=== PATIENT | male | born 1960 | race Caucasian/White ===

== ENCOUNTER 2019-07-23 18:27 | Inpatient (IN) ==
[2019-07-23] MEDS ORDERED: ACETAMINOPHEN 325 MG TAB PO PRN (23:47)
[2019-07-23] MEDS ORDERED: ONDANSETRON INJ 2 MG/ML 2 ML VIAL IV PRN (23:47)
[2019-07-24] MEDS: D5W AND NSS 1,000 ML IV SCH ×3 (00:14→16:01)
[2019-07-24] MEDS: HYDROmorphone INJ 0.5 MG/0.5 ML SYR IV PRN ×3 (00:14→13:36)
[2019-07-24] MEDS: CHLORASEPTIC 1.4% SOLN 180 ML BTL MT PRN ×3 (04:56→12:36)
[2019-07-24 05:35] LABS: Basophils # (auto) 0.01 K/uL (0-0.2); Basophils % (auto) 0.2 %; Eosinophils # (auto) 0.05 K/uL (0-0.5); Eosinophils % (auto) 0.8 %; Hematocrit (blood only) 44.7 % (42-52); Hemoglobin 15.4 g/dL (14.0-18.0); Immature Granulocytes # (auto) 0.01 K/uL (0.00-0.02); Immature Granulocytes % (auto) 0.2 %; Lymphocytes # (auto) 0.92 K/uL (1.2-3.4); Lymphocytes % (auto) 14.9 %; Mean Corpuscular Hgb Conc 34.5 g/dL (32-36); Mean Corpuscular Volume 92.9 fL (80-100); Mean Platelet Volume 10.8 fL (7.4-10.4); Monocytes % (auto) 12.9 %; Neutrophils # (auto) 4.39 K/uL (1.4-6.5); Platelet Count 172 K/uL (130-400); RDW Coefficient of Variation 13.3 % (11.5-14.5); RDW Standard Deviation 45.7 fL (36.4-46.3); Red Blood Count 4.81 M/uL (4.7-6.1); White Blood Count 6.18 K/uL (4.8-10.8)
[2019-07-24 05:51] LABS: INR 1.1 (0.9-1.1); Partial Thromboplastin Ratio 0.9; Partial Thromboplastin Time 26.4 Seconds (21.0-31.0); Prothrombin Time 11.4 Seconds (9.0-12.0)
[2019-07-24 05:57] LABS: BUN Creatinine Ratio 20.8 (10-20); Calcium 8.9 mg/dl (8.5-10.1); Creatinine Clr Calc Pharmacy 75.7 ml/min; Est GFR (African American) 75.7; Est GFR (Non-African American) 65.3
--- NOTE | 2019-07-24 05:57 | History and Physical Report ---
DATE OF ADMISSION: 07/24/2019 CHIEF COMPLAINT: Abdominal pain, small-bowel obstruction. HISTORY OF PRESENT ILLNESS: This is a 59-year-old male with past medical history significant for hyperlipidemia, recurrent herpes simplex, not currently on medications, developed severe abdominal pain yesterday. No nausea or vomiting and he went to [facility] in [place], and CAT scan was done and found to have small-bowel obstruction, as they do not have surgical services currently, he was transferred here for further care. The patient has been placed NG tube prior to transfer. The pain is better controlled now. NG tube is draining greenish material. His last bowel movement was yesterday morning with a small bowel movement. Denies any blood in the stools or black stools. No hematuria, no burning micturition. No chest pain, no shortness of breath, no cough, no fever, no chills, no headache, no blurred vision, no dizziness, no earache, no runny nose, no sore throat, no dysphagia. He says he has an umbilical hernia repair and he did not had any other abdominal surgeries. Currently resting comfortably and hemodynamically stable. ALLERGIES: No known drug allergies. PAST MEDICAL HISTORY: As mentioned above. PAST SURGICAL HISTORY: Foot surgery, right knee arthroscopy, liver biopsy, umbilical hernia repair. MEDICATIONS: None. FAMILY HISTORY: Mother had lymphoma. SOCIAL HISTORY: No smoking. Alcohol, 6 beers a month. No drug use. REVIEW OF SYMPTOMS: As per HPI. Rest of review of symptoms negative. PHYSICAL EXAMINATION: GENERAL: The patient is moderate built, not in acute distress. VITAL SIGNS: Temperature 36.6, pulse 80, respiratory rate 18, blood pressure 168/99 and oxygen 98% on room air. HEENT: No pallor, no icterus. Pupils equal, round, reactive to light. NECK: No JVD, no neck masses, no carotid bruits. CARDIOVASCULAR: S1, S2 heard, regular rate and rhythm, no murmur, no gallop. RESPIRATORY SYSTEM: Normal AP diameter. No accessory muscle use. No wheezing. No crackles. ABDOMEN: Soft, somewhat distended. Absent bowel sounds. Nontender. No guarding. CENTRAL NERVOUS SYSTEM: Cranial nerves II-XII grossly intact. Nonfocal. EXTREMITIES: No edema, no erythema. LABORATORY DATA: Labs done at [facility] shows WBC 8.6, hemoglobin 17.2, hematocrit 49.7, platelets 188. Sodium 140, potassium 4.1, chloride 102, bicarbonate 22, BUN 22, creatinine 1.2, serum glucose 134, total bilirubin 0.8, AST 20, ALT 54, alkaline phosphatase 84. Troponin I less than 0.02. Magnesium 2, lipase 87. Lactic acid 1.1. Urinalysis unremarkable, negative. IMAGING: CT of abdomen and pelvis with contrast shows abnormal distention of the jejunum and proximal ileal bowel loops with decompression of the distal ileum and colon. No obstructing lesion is identified. This could represent small-bowel ileus or partial obstruction. There is no pneumatosis, perforation, fluid distended stomach with gastroesophageal reflux into the esophagus, small sliding hiatal hernia. ASSESSMENT AND PLAN: This is a 59-year-old male who was transferred from [facility] for small-bowel obstruction. 1. Small-bowel obstruction. The patient has only umbilical hernia repair surgery. No other abdominal surgeries. CAT scan shows no obstructing lesion, but shows distention of jejunal and proximal ileal bowel loops with decompression of the distal ileum and colon, partial small-bowel obstruction versus ileus. The patient is status post NG tube which we will continue for now, n.p.o., IV fluids, IV antiemetics, IV pain medicine p.r.n. Will follow KUB in a.m. and labs in a.m. Consult surgery for further recommendations. 2. Deep venous thrombosis prophylaxis, sequential compression devices. DISPOSITION: Close monitoring in the medical floor. Level 1 full code. MTDD
--- NOTE | 2019-07-24 08:31 | Surgery Consultation ---
Date of Consultation July 24, 2019 Assessment & Plan (1) Small bowel obstruction: This is a 59y M with a PSH of umbilical hernia repair who presented to [facility] yesterday with complaints of severe crampy abdominal pain. A CT a/p was obtained that revealed findings concerning for a small bowel ileus vs partial obstruction. Outside hospital CT scan has been uploaded in [place]. Patient sent to [facility] as there was no available surgeon on-call at OSH. He was transferred over with an NGT in place. Since arrival put out 350cc overnight. He had 3 loose bowel movements this AM. Patient believes his pain and abdominal bloat is improving, rating pain a 4/10 currently. His biggest complaint at this time is the NGT. A KUB was ordered this AM which shows persistent small bowel dilation, with concern for developing bowel wall edema. Currently patient's vital signs are stable. On examination patient has some abdominal discomfort to deep palpation and is distended. A lactate has been ordered to follow up upon. I will discuss case with Dr. Gaston. For now continue NPO with IVF and NGT management. We will continue to follow. as above. pt seen. feeling better. currently no abdominal pain. primary c/o is ngt. Lactic acid normal. abd: distended. +bs's. continue conservative management. IVF. keep NGT. recheck KUB tomorrow. only surgical hx is UH repair without mesh. will continue to follow along. History of Present Illness Attending Physician: Keiry Bailey, DO History of Present Illness This is a 59yM who presents to the [facility] on 07/24/19 as a transfer from [facility] with complaints of abdominal pain. Patient says his abdominal pain started yesterday. He initially thought it was a stomach bug, because his girlfriend just had it. His abdominal pain continued to worsen, describing it as crampy, and rating it a 9/10 prompting him to come to the ED. Workup at [facility] with a CT scan showed concern for possible small bowel ileus vs partial obstruction. WBC 8.6, lactate 1.1. He was transferred to [facility] as [facility] did not have a surgeon that was going to remain on-call. An NGT was placed prior to transfer. Patient denies any nausea/vomiting, chest pain, shortness of breath. Patient said his last BM prior to this AM was yesterday, and it was formed and small. He had abdominal bloat, which today he believes is improving. His past abdominal surgical history includes an open umbilical hernia repair, performed last year at [facility] in [place]. Allergies Allergy/AdvReac Type Severity Reaction Status Date / Time No Known Allergies Allergy Verified 06/26/02 17:59 Patient History Social History Preferred Language: Bangladeshi Communication Ability: Effective Lump Receiver Required: No Beliefs That Will Affect Care: None Current Living Situation: Alone Smoking Status: Never smoker Do You Dip or Chew Tobacco: No ; Hx Alcohol Use: No Hx Substance Use: No Review of Systems Constitutional: + chills and + sweats Respiratory: no shortness of breath Cardiovascular: no chest pain Gastrointestinal: + abdominal pain (generalized pain and cramping) and + bloating; no nausea and no vomiting + formed BM yesterday, + loose stoolx3 this AM Genitourinary: no problem reported (no urinary symptoms) Physical Exam Physical Exam: awake/alert Constitutional: well developed and well nourished; no acute distress Respiratory: normal respiratory effort Gastrointestinal (Abdomen): Inspection/Auscultation: + abdomen distended and + abdominal surgical scar (scar from prior open umbilical hernia) Percussion/Palpation: + abdomen tender (discomfort in abd to deep palpation) NGT green/brownish output, ~350cc Results & Data Vital Signs (Past 12 Hours) Vital Signs Temp Pulse Pulse Resp BP Pulse Ox 07/24/19 07:42 36.4 C L 94 H 18 148/96 H 94 07/24/19 04:38 81 153/96 H 07/23/19 23:40 36.6 C 80 18 168/99 H 95 [facility] CT a/p Impression Report: - Abnormal distention of jejunal and proximal ileal bowel loops with decompression of the distal ileum and colon. No obstruction lesion identified. Could represent small bowel ileus or partial obstruction. There is no pneumatosis or perforation. - Fluid distended stomach and gastroesophageal reflux into esophagus. And small hiatal hernia. XR KUB/Abdomen 1 view CLINICAL HISTORY: 59 years-old Male presenting with sbo. TECHNIQUE: Single supine view of the abdomen was obtained. COMPARISON: Outside CT of abdomen and pelvis from 07/23/2019. FINDINGS: Significantly distended small bowel with an apparent diameter of over 6 cm though this may be affected by magnification. Mild small bowel wall thickening may be present in the distended loops, which have a stacked configuration. Nasogastric tube terminates in the gastric fundus with sidehole also contained within the gastric lumen, new since CT. No gross pneumatosis or pneumoperitoneu m. Allowing for bowel gas and stool, no calcifications to suggest nephrolithiasis. Excreted contrast noted in the urinary bladder. Osseous structures normal. Lung bases clear. IMPRESSION: 1. Persistent small bowel obstruction with severely distended loops of small bowel. 2. Possible developing bowel wall edema could raise concern for ischemia. No pneumatosis. Close clinical follow-up recommended. The report will be called/faxed according to standard departmental protocol. ACT 112: Negative or not required by law. Electronically signed by: Adis Parisi M.D. 07/24/2019 8:32 AM PG Care Time/CCT Total # of Minutes Spent Total Time Spent with Patient: Total time spent is greater than 50% in coordination of care (as documented) at patient's floor/unit and/or counseling patient: Coding Level of Care Code 34566 Inpt Consult Level 4 Diagnoses Small bowel obstruction K56.609
--- NOTE | 2019-07-24 08:34 | XRay Report ---
XR KUB/Abdomen 1 view CLINICAL HISTORY: 59 years-old Male presenting with sbo. TECHNIQUE: Single supine view of the abdomen was obtained. COMPARISON: Outside CT of abdomen and pelvis from 07/23/2019. FINDINGS: Significantly distended small bowel with an apparent diameter of over 6 cm though this may be affecte d by magnification. Mild small bowel wall thickening may be present in the distended loops, which hav e a stacked configuration. Nasogastric tube terminates in the gastric fundus with sidehole also conta ined within the gastric lumen, new since CT. No gross pneumatosis or pneumoperitoneum. Allowing for bowel gas and stool, no calcifications to suggest nephrolithiasis. Excreted contrast not ed in the urinary bladder. Osseous structures normal. Lung bases clear. IMPRESSION: 1. Persistent small bowel obstruction with severely distended loops of small bowel. 2. Possible developing bowel wall edema could raise concern for ischemia. No pneumatosis. Close clin ical follow-up recommended. The report will be called/faxed according to standard departmental protocol. ACT 112: Negative or not required by law. Electronically signed by: Adis Parisi M.D. 07/24/2019 8:32 AM
[2019-07-24] MEDS ORDERED: CHLORASEPTIC 1.4% SOLN 180 ML BTL MT PRN (10:25)
[2019-07-24] MEDS ORDERED: LORazepam 0.5 MG/1 ML VIAL IV PRN (11:42)
[2019-07-24] MEDS ORDERED: LORazepam 0.5 MG/1 ML VIAL IV ONE (12:00)
--- NOTE | 2019-07-24 14:44 | Electrocardiogram Report ---
Test Reason : Blood Pressure : / mmHG Vent. Rate : 082 BPM Atrial Rate : 082 BPM P-R Int : 176 ms QRS Dur : 086 ms QT Int : 360 ms P-R-T Axes : 066 -16 042 degrees QTc Int : 420 ms Normal sinus rhythm Normal ECG No previous ECGs available Confirmed by Jovanny Dominguez ([id number]) on 07/24/2019 2:44:18 PM Referred By: Vahid Chiu Confirmed By:Jovanny Dominguez
[2019-07-24] MEDS ORDERED: KETOROLAC 30 MG/ML VIAL IV ONE (17:17)
[2019-07-24] MEDS ORDERED: LIDOCAINE HCL VISCOUS SOLN 2% 15 ML UDC MT PRN (17:17)
[2019-07-24] MEDS: ACETAMINOPHEN 1,000 MG/100 ML VIAL IV SCH (18:01)
--- NOTE | 2019-07-24 22:55 | Communication Note ---
Date of Service: July 24, 2019 I saw the patient this morning shortly after admission. He reported NG tube discomfort in the back of his throat not improved with phenol spray. Trial of Ativan was given to him to help with this which later the nurse explained made him goofy. Good venous was likely were the result of taking the IV Ativan with IV Dilaudid. Discontinue the Ativan and gave Tylenol and other pain medications. Physical exam revealed slightly distended abdomen in the upper portion which is also tender to palpation. No bowel sounds were appreciable by auscultation. NG tube in place and the patient is uncomfortable with this. Clear lungs auscultation. Normal cardiac exam. Continue plan for bowel rest and supportive care as needed. Awaiting surgical recommendations. DO Leo
[2019-07-25] MEDS: D5W AND NSS 1,000 ML IV SCH ×3 (00:04→16:35)
[2019-07-25] MEDS: KETOROLAC 30 MG/ML VIAL IV PRN ×2 (00:08→07:39)
[2019-07-25] MEDS: ACETAMINOPHEN 1,000 MG/100 ML VIAL IV SCH ×3 (02:35→18:29)
--- NOTE | 2019-07-25 07:09 | XRay Report ---
KUB HISTORY: Follow up study in a patient with small bowel obstruction eval SBO pattern COMPARISON: KUB 07/24/2019 FINDINGS: Persistent dilated loops of small bowel within the left central abdomen measure up to 4.8 c m, previously 6.4. Enteric tube is noted projecting over the upper abdomen which appears to have been slightly retracted in the interval with distal tip projected superiorly near the gastric fundus. No renal calculi. No ureteral calculi. No pneumoperitoneum or pneumatosis. No fracture. IMPRESSION: 1. Persistent small bowel dilation, mildly improved from comparison suggestive of ongoing small bowel obstruction. 2. The enteric tube has been partially retracted, distal tip projected superiorly within the expected location of the proximal gastric fundus. ACT 112: Negative or not required by law. The above report was generated using voice recognition software. It may contain grammatical, syntax o r spelling errors. Electronically signed by: Zane Childers M.D. 07/25/2019 7:08 AM
[2019-07-25] MEDS ORDERED: SODIUM CHLORIDE 0.9% 1000ML 1,000 ML IV ONE (11:20)
[2019-07-25] MEDS ORDERED: FAMOTIDINE 20 MG in SYRINGE 3 ML IV SCH (11:30)
--- NOTE | 2019-07-25 11:51 | Surgery Progress Note ---
Date of Service July 25, 2019 Assessment & Plan (1) Partial small bowel obstruction: clinically slowly improving KUB slightly improved NGT still with high outputs ( pt admittedly eating alot of ice) rec: keep ngt. repeat KUB tomorrow. IVF ( will give bolus now for high output) no indication for surgery yet will add protonix ( NGT output appears heme + ) [facility] covering for weekend. Subjective pt feeling ok. denies pain. no appetite. +several more loose BM's this am. Physical Exam Physical Exam: alert. nad. comfortable abd: soft. less distended than yesterday. mild diffuse ttp. no g/r/r Results & Data Vital Signs (Past 12 Hours) Vital Signs Temp Pulse Resp BP Pulse Ox 07/25/19 07:45 36.4 C L 76 14 153/88 H 93 PG Care Time/CCT Total # of Minutes Spent Total Time Spent with Patient: Total time spent is greater than 50% in coordination of care (as documented) at patient's floor/unit and/or counseling patient: Coding Level of Care Code 32815 Subseq Hosp Care Lvl 3 Diagnoses Partial small bowel obstruction K56.600
--- NOTE | 2019-07-25 14:59 | Hospitalist Progress Note ---
Date of Service July 25, 2019 Assessment & Plan (1) UGIB (upper gastrointestinal bleed): NEw coffee ground emesis on Day 2 of NGT. Toradol has been given for pain, last dose was 700am this morning. Pt denies pain. Protonix bolus and drip. Toradol discontinued. Consult GI. Likely OK to remove tube as patient having bowel movements, however, would like to coordinate that with Gen Surg and GI first. Strict NPO. CBC pending. (2) Small bowel obstruction: Persistent. NGT and bowel rest. Improved. Cont supportive care. (3) Headache: tylenol, massage/pressure to neck base recommended. (4) DVT prophylaxis: SCDs/ambulation-chemoprophy contraindicated in setting of bleed. Full Code Dispo-cont hospitalization DO [facility] Admission and Anticipated Discharge Date Admission Date: July 23, 2019 Subjective +headache +coffee grouond emesis starting 1000 this am last dose toradol 0700 +BM this afternoon denies abdominal pain no fevers/chills throat sore and irritated from tube. Review of Systems Review of Systems: All systems reviewed & are unremarkable except as noted in Subjective Physical Exam Physical Exam: CONSTITUTIONAL: WNWD, vitals as above, generally well- appearing EYES: normal conjunctivae, no scleral icterus ENT: external ear and nose normal, oropharynx clear, NGT in place, coffee ground substance in suction canister RESPIRATORY: clear to auscultation bilaterally, no crackles, rales or wheezes, normal respiratory effort CARDIOVASCULAR: regular rate and rhythm, S1 and 2 heard without murmurs, gallops or rubs, no JVD, no peripheral edema GASTROINTESTINAL: soft, nontender, slight protuberance but soft, no guarding. MUSCULOSKELETAL: strength 5/5 throughout, head is normocephalic and atraumatic SKIN: warm and dry NEUROLOGIC: CN 2-12 grossly intact, no sensory deficit, normal cognition, normal speech, no gross focal deficits. PSYCHIATRIC: alert cooperative and oriented to person, place and time. Results & Data ([facility]) Vital Signs (Past 12 Hours) Vital Signs Temp Pulse Resp BP Pulse Ox 07/25/19 13:05 79 160/91 H 07/25/19 11:53 36.7 C 72 14 163/83 H 95 07/25/19 07:45 36.4 C L 76 14 153/88 H 93 Laboratory Results pending Diagnostic Findings KUB HISTORY: Follow up study in a patient with small bowel obstruction eval SBO pattern COMPARISON: KUB 07/24/2019 FINDINGS: Persistent dilated loops of small bowel within the left central abdomen measure up to 4.8 cm, previously 6.4. Enteric tube is noted projecting over the upper abdomen which appears to have been slightly retracted in the interval with distal tip projected superiorly near the gastric fundus. No renal calculi. No ureteral calculi. No pneumoperitoneum or pneumatosis. No fracture. IMPRESSION: 1. Persistent small bowel dilation, mildly improved from comparison suggestive of ongoing small bowel obstruction. 2. The enteric tube has been partially retracted, distal tip projected superiorly within the expected location of the proximal gastric fundus. Medications Administered Current Inpatient Medications Hydromorphone HCl (Dilaudid) 0.5 mg IV Q3H PRN PRN Reason: Pain Stop: 08/06/19 23:46 Last Admin: 07/24/19 13:36 Dose: 0.5 mg Documented by: Dextrose/Sodium Chloride (D5w And Nss) 1,000 mls @ 125 mls/hr IV .Q8H SARAHI Stop: 08/22/19 23:46 Last Infusion: 07/25/19 13:10 Dose: 125 mls/hr Documented by: Acetaminophen (Ofirmev) 1,000 mg in 100 mls @ 400 mls/hr IV Q8H SARAHI Stop: 07/27/19 17:59 Last Infusion: 07/25/19 10:18 Dose: Infused Documented by: Famotidine 20 mg/ Syringe 5 mls @ 2.5 mls/min IV BID SARAHI Stop: 08/24/19 11:29 Last Admin: 07/25/19 11:57 Dose: 2.5 mls/min Documented by: Pantoprazole Sodium 80 mg/ (Dextrose) 120 mls @ 480 mls/hr IV TODAY@1515 SARAHI Stop: 07/25/19 15:29 Pantoprazole Sodium 40 mg/ (Dextrose) 100 mls @ 20 mls/hr IV Q5H SARAHI Stop: 08/24/19 15:29 Lidocaine HCl (Viscous Lidocaine 2%) 15 ml MT Q8H PRN PRN Reason: throat pain Stop: 08/23/19 17:16 Ondansetron HCl (Zofran) 4 mg IV Q6H PRN PRN Reason: Nausea Stop: 08/22/19 23:46 Last Admin: 07/24/19 00:21 Dose: 4 mg Documented by: Phenol (Chloraseptic 1.4% [place]) 2 sprays MT Q2H PRN PRN Reason: Sore Throat Stop: 08/23/19 04:27 Last Admin: 07/24/19 12:36 Dose: 2 sprays Documented by:
[2019-07-25] MEDS ORDERED: PANTOprazole 80 MG in DEXTROSE 5% 100 ML IV SCH (15:15)
--- NOTE | 2019-07-25 15:37 | Gastrointestinal Consultation ---
Date of Consultation July 25, 2019 Assessment & Plan (1) Partial small bowel obstruction: (2) Coffee ground emesis: Pt is a 59 y/o male w resolving partial SBO, noted to have coffee ground NGT output this AM. - Repeat CBC, BMP today - Keep NPO - Start PPI bolus and gtt; Pepcid IV DC'd - Monitor blood ct and if decreasing H/H will consider EGD eval over weekend - Hold NSAIDs Supervising Physician Co-Signing Physician Notes I performed a history and physical examination of the patient today, including specifically on physical exam - soft abdomen. I have discussed the patient's management with the advanced practitioner. Please refer to the nurse practitioner's note for the documented findings and plan of care. 59 yrs old male patient admitted with SBO, has NG placed for decompression, GI consulted for coffee ground material in the NG tube. He is passing flatus and has brown colored BM. KUB with dilated loops of small bowel. NG aspirate is now yellow bile colored with no blood or coffee ground material. Recommend: IV PPI BID Management of SBO per surgical team. If evidence of rebleeding or drop in H/H then please recall GI over the weekend for EGD, otherwise if remains stable then OP EGD. Recall GI if needed. History of Present Illness Reason for Consultation: Coffee ground NGT output Requesting Physician: Dr. Keiry Bailey Attending Physician: Dr. Sarai Meredith History of Present Illness Pt is a 59 y/o male who was transferred from [facility] for partial small bowel obstruction management. Partial SBO is resolving, pt passing flatus, BMs, and having less abd distension, less discomfort. Surgery following, continuing conservative management. Pt has NGT in placed, and had been NPO except ice chips. It's noted that his NGT is putting out coffee grounds 10AM this morning. No labs available today. Yesterday bloodwork showed no leukocytosis, normal H/H, BUN up 25. Pt reports stools were brown earlier today w/o tarry or black appearance or fermin rectal bleeding. He takes Advil 1 tab usually at nighttime. Denies high doses NSAIDs otherwise, tobacco or ETOH abuses. Denies hx of gastric ulcer. Abd surgery hx include umbilical hernia repair. He did receive Toradol while admitted Allergies Allergy/AdvReac Type Severity Reaction Status Date / Time No Known Allergies Allergy Verified 06/26/02 17:59 Patient History Social History Preferred Language: [place] Communication Ability: Effective Tailing Hand Required: No Beliefs That Will Affect Care: None marital status: Current Living Situation: Alone Smoking Status: Never smoker Do You Dip or Chew Tobacco: No ; Hx Alcohol Use: No Hx Substance Use: No Review of Systems Review of Systems: All systems reviewed & are unremarkable except as noted in HPI & below Physical Exam Constitutional: WD/WN, vitals as above well groomed, cooperative and comfortable Eyes: PERRL, conjunctivae normal, anicteric sclerae ENMT: external ear and nose normal, oropharynx normal NGT canister w coffee grounds about 300ml Respiratory: normal respiratory effort, lungs clear to auscultation Cardiovascular: RRR, no murmur, no edema Gastrointestinal (Abdomen): normal bowel sounds, soft, nontender, no hepatosplenomegaly Skin: no rashes, warm and dry no jaundice Psychiatric: A+Ox3, euthymic affect Lymphatic: no lymphedema Results & Data ([facility]) Vital Signs (Past 12 Hours) Vital Signs Temp Pulse Pulse Resp BP Pulse Ox 07/25/19 15:24 36.6 C 77 16 171/96 H 96 07/25/19 13:05 79 160/91 H 07/25/19 11:53 36.7 C 72 14 163/83 H 95 07/25/19 07:45 36.4 C L 76 14 153/88 H 93
[2019-07-25 15:44] LABS: Basophils # (auto) 0.02 K/uL (0-0.2); Basophils % (auto) 0.4 %; Eosinophils # (auto) 0.07 K/uL (0-0.5); Eosinophils % (auto) 1.4 %; Hemoglobin 13.7 g/dL (14.0-18.0); Immature Granulocytes # (auto) 0.01 K/uL (0.00-0.02); Immature Granulocytes % (auto) 0.2 %; Lymphocytes # (auto) 1.28 K/uL (1.2-3.4); Lymphocytes % (auto) 25.9 %; Mean Corpuscular Hemoglobin 31.9 pg (25-34); Mean Corpuscular Volume 93.2 fL (80-100); Mean Platelet Volume 10.6 fL (7.4-10.4); Monocytes # (auto) 0.51 K/uL (0.11-0.59); Monocytes % (auto) 10.3 %; Neutrophils # (auto) 3.06 K/uL (1.4-6.5); Neutrophils % (auto) 61.8 %; Platelet Count 168 K/uL (130-400); RDW Coefficient of Variation 13.1 % (11.5-14.5); RDW Standard Deviation 44.2 fL (36.4-46.3); Red Blood Count 4.29 M/uL (4.7-6.1); White Blood Count 4.95 K/uL (4.8-10.8)
[2019-07-25] MEDS: PANTOprazole 40 MG in DEXTROSE 5% 100 ML IV SCH ×2 (15:48→20:40)
[2019-07-25 15:57] LABS: Albumin Level 3.5 gm/dl (3.4-5.0); BUN Creatinine Ratio 12.8 (10-20); Bilirubin,Total 0.7 mg/dl (0.2-1); Calcium 8.1 mg/dl (8.5-10.1); Creatinine Clr Calc Pharmacy 102.1 ml/min; Est GFR (African American) 107.7; Est GFR (Non-African American) 92.9; Globulin 3.5 gm/dl (2.5-4.0); Potassium 3.5 mmol/L (3.5-5.1)
[2019-07-25 16:05] LABS: Mean Corpuscular Hgb Conc 34.3 g/dL (32-36)
[2019-07-25] MEDS ORDERED: HydrALAZINE HCL 20 MG/ML VIAL IV ONE (16:20)
[2019-07-25] MEDS: HYDROmorphone INJ 0.5 MG/0.5 ML SYR IV PRN ×2 (17:17→20:50)
[2019-07-25] MEDS: CHLORASEPTIC 1.4% SOLN 180 ML BTL MT PRN (20:40)
[2019-07-25 21:10] LABS: Hematocrit (blood only) 40.7 % (42-52)
[2019-07-26] MEDS: D5W AND NSS 1,000 ML IV SCH ×3 (01:14→16:16)
[2019-07-26] MEDS: ACETAMINOPHEN 1,000 MG/100 ML VIAL IV SCH ×3 (01:15→18:05)
[2019-07-26] MEDS: PANTOprazole 40 MG in DEXTROSE 5% 100 ML IV SCH ×5 (01:21→21:26)
[2019-07-26] MEDS: HYDROmorphone INJ 0.5 MG/0.5 ML SYR IV PRN ×4 (04:44→21:26)
[2019-07-26 05:48] LABS: Hematocrit (blood only) 38.6 % (42-52); Hemoglobin 13.4 g/dL (14.0-18.0); Mean Corpuscular Hemoglobin 31.5 pg (25-34); Mean Corpuscular Hgb Conc 34.7 g/dL (32-36); Mean Corpuscular Volume 90.6 fL (80-100); Mean Platelet Volume 10.4 fL (7.4-10.4); Platelet Count 167 K/uL (130-400); RDW Coefficient of Variation 12.9 % (11.5-14.5); RDW Standard Deviation 42.5 fL (36.4-46.3); Red Blood Count 4.26 M/uL (4.7-6.1); White Blood Count 4.64 K/uL (4.8-10.8)
[2019-07-26 06:26] LABS: BUN Creatinine Ratio 6.8 (10-20); Calcium 7.9 mg/dl (8.5-10.1); Creatinine Clr Calc Pharmacy 113.6 ml/min; Est GFR (African American) 112.5; Est GFR (Non-African American) 97.1; Magnesium 1.9 mg/dl (1.8-2.4); Potassium 3.2 mmol/L (3.5-5.1)
--- NOTE | 2019-07-26 09:23 | XRay Report ---
XR KUB/Abdomen 1 view CLINICAL HISTORY: eval bowel pattern COMPARISON STUDY: 07/25/2019 FINDINGS: Improved exam. Small bowel distention has improved. Maximum diameter has diminished to 4.2 cm from 4.8 cm. Nasogastric tube remains within the gastric fundus. No evidence for significant colonic distention. IMPRESSION: Mildly improved small bowel distention. Nasogastric tube remains within the gastric fund us. ACT 112: Negative or not required by law. The above report was generated using voice recognition software. It may contain grammatical, syntax or spelling errors. Electronically signed by: Hany Mccall M.D. 07/26/2019 9:21 AM
--- NOTE | 2019-07-26 12:34 | Hospitalist Progress Note ---
Date of Service July 26, 2019 Assessment & Plan (1) UGIB (upper gastrointestinal bleed): Coffee ground emesis started yesterday morning, now improved on PPI drip. No drop in H/H overnight and he remains hemodynamically stable. Will need to schedule an outpatient EGD with Braeden MOYA as outpatient upon discharge from the hospital. (2) Small bowel obstruction: Awaiting clearance from surgery to remove the tube. Some bowel sounds present/passing flatus/KUB this am still reports SB distension and abdomen is still distended. Will trial clamp the tube now until seen by surgery. (3) Headache: resolved. Tylenol PRN (4) DVT prophylaxis: SCDs/ambulation-chemoprophy contraindicated in setting of bleed. Full Code Dispo-cont hospitalization Keiry Bailey DO [facility] Hospitalist Admission and Anticipated Discharge Date Admission Date: July 23, 2019 Anticipated date of discharge: 07/28/19 Physical Exam Physical Exam: CONSTITUTIONAL: WNWD, vitals as above, generally well- appearing EYES: normal conjunctivae, no scleral icterus ENT: external ear and nose normal, oropharynx clear, NGT in place, substance in suction container more greenish appearance similar to bile. RESPIRATORY: clear to auscultation bilaterally, no crackles, rales or wheezes, normal respiratory effort CARDIOVASCULAR: regular rate and rhythm, S1 and 2 heard without murmurs, gallops or rubs, no JVD, no peripheral edema GASTROINTESTINAL: soft, nontender, slight protuberance but soft, no guarding. Hypoactive bowel sounds MUSCULOSKELETAL: strength 5/5 throughout, head is normocephalic and atraumatic SKIN: warm and dry NEUROLOGIC: CN 2-12 grossly intact, no sensory deficit, normal cognition, normal speech, no gross focal deficits. PSYCHIATRIC: alert cooperative and oriented to person, place and time. Results & Data ([facility]) Vital Signs (Past 12 Hours) Vital Signs Temp Pulse Resp BP Pulse Ox 07/26/19 07:25 36.8 C 67 16 135/74 95 Laboratory Results Short CBC 07/25/19 07/25/19 07/26/19 Range/Units 15:17 20:59 05:20 WBC 4.95 4.64 L (4.8-10.8) K/uL Hgb 13.7 L 14.0 13.4 L (14.0-18.0) g/dL Hct 40.0 L 40.7 L 38.6 L (42-52) % Plt Count 168 167 (130-400) K/uL BMP 07/25/19 07/26/19 15:17 05:20 Sodium 142 140 Potassium 3.5 3.2 L Chloride 112 H 109 H Carbon Dioxide 26 26 BUN 11 D 5 L D Creatinine 0.89 D 0.80 Glucose 95 108 H Calcium 8.1 L 7.9 L Liver Function 07/25/19 Range/Units 15:17 Total Bilirubin 0.7 (0.2-1) mg/dl AST 15 (15-37) U/L ALT 26 (12-78) U/L Alkaline Phosphatase 60 (45-117) U/L Albumin 3.5 (3.4-5.0) gm/dl Diagnostic Findings XR KUB/Abdomen 1 view CLINICAL HISTORY: eval bowel pattern COMPARISON STUDY: 07/25/2019 FINDINGS: Improved exam. Small bowel distention has improved. Maximum diameter has diminished to 4.2 cm from 4.8 cm. Nasogastric tube remains within the gastric fundus. No evidence for significant colonic distention. IMPRESSION: Mildly improved small bowel distention. Nasogastric tube remains within the gastric fundus. Medications Administered Current Inpatient Medications Hydromorphone HCl (Dilaudid) 0.5 mg IV Q3H PRN PRN Reason: Pain Stop: 08/06/19 23:46 Last Admin: 07/26/19 09:34 Dose: 0.5 mg Documented by: Dextrose/Sodium Chloride (D5w And Nss) 1,000 mls @ 125 mls/hr IV .Q8H SARAHI Stop: 08/22/19 23:46 Last Admin: 07/26/19 09:28 Dose: 125 mls/hr Documented by: Acetaminophen (Ofirmev) 1,000 mg in 100 mls @ 400 mls/hr IV Q8H SARAHI Stop: 07/27/19 17:59 Last Infusion: 07/26/19 09:45 Dose: Infused Documented by: Pantoprazole Sodium 40 mg/ (Dextrose) 100 mls @ 20 mls/hr IV Q5H SARAHI Stop: 08/24/19 15:29 Last Admin: 07/26/19 11:08 Dose: 8 mg/hr, 20 mls/hr Documented by: Lidocaine HCl (Viscous Lidocaine 2%) 15 ml MT Q8H PRN PRN Reason: throat pain Stop: 08/23/19 17:16 Last Admin: 07/25/19 17:19 Dose: 15 ml Documented by: Ondansetron HCl (Zofran) 4 mg IV Q6H PRN PRN Reason: Nausea Stop: 08/22/19 23:46 Last Admin: 07/24/19 00:21 Dose: 4 mg Documented by: Phenol (Chloraseptic 1.4% [place]) 2 sprays MT Q2H PRN PRN Reason: Sore Throat Stop: 08/23/19 04:27 Last Admin: 07/25/19 20:40 Dose: 2 sprays Documented by:
--- NOTE | 2019-07-26 14:18 | Gastroenterology Progress Note ---
Date of Service July 26, 2019 Assessment & Plan (1) Small bowel obstruction: (2) Coffee ground emesis: likely bilious Recs: 1.continue NPO 2. NG tube to intermittent suction 3. daily KUBs 4.serial abdominal exams Admission and Anticipated Discharge Date Admission Date: July 23, 2019 Anticipated date of discharge: 07/28/19 Subjective no events overnight, no further coffee ground emesis, hgb noted to be 13.4 today. afebrile. still with NG tube. Review of Systems Constitutional: no fever and no chills Respiratory: no cough, no dyspnea and no dyspnea on exertion Cardiovascular: no chest pain and no dyspnea Gastrointestinal: as per Subjective / HPI Psychiatric: no depression and no anxiety Physical Exam Constitutional: WD/WN, vitals as above Respiratory: normal respiratory effort, lungs clear to auscultation Cardiovascular: RRR, no murmur, no edema Gastrointestinal (Abdomen): normal bowel sounds, soft, nontender, no hepatosplenomegaly Musculoskeletal: no lower extremity edema Psychiatric: A+Ox3, euthymic affect Results & Data Results & Data ([facility]) Vital Signs (Past 12 Hours) Vital Signs Temp Pulse Resp BP Pulse Ox 07/26/19 07:25 36.8 C 67 16 135/74 95 PG Care Time/CCT Total # of Minutes Spent Total Time Spent with Patient: Total time spent is greater than 50% in coord ination of care (as documented) at patient's floor/unit and/or counseling patient: Coding Level of Care Code 13205 Subseq Hosp Care Lvl 3 Diagnoses Small bowel obstruction K56.609 Coffee ground emesis K92.0
--- NOTE | 2019-07-26 20:10 | Surgery Progress Note ---
Date of Service pt feels better, no abdominal pain, no nausea, no vomiting, still passed gas, no bm yet, NG-380ml July 26, 2019 Assessment & Plan (1) Partial small bowel obstruction: partial SBO, doing better, no abdominal pain, passed gas, continue treatment, no surgical indication now, will F/U Supervising Physician Co-Signing Physician Notes I performed a history and physical examination of the patient today, including specifically on physical exam - soft abdomen. I have discussed the patient's management with the advanced practitioner. Please refer to the nurse practitioner's note for the documented findings and plan of care. 59 yrs old male patient admitted with SBO, has NG placed for decompression, GI consulted for coffee ground material in the NG tube. He is passing flatus and has brown colored BM. KUB with dilated loops of small bowel. NG aspirate is now yellow bile colored with no blood or coffee ground material. Recommend: IV PPI BID Management of SBO per surgical team. If evidence of rebleeding or drop in H/H then please recall GI over the weekend for EGD, otherwise if remains stable then OP EGD. Recall GI if needed. Subjective +headache +coffee grouond emesis starting 1000 this am last dose toradol 0700 +BM this afternoon denies abdominal pain no fevers/chills throat sore and irritated from tube. Physical Exam Constitutional: WD/WN, vitals as above well developed and well nourished Eyes: PERRL, conjunctivae normal, anicteric sclerae ENMT: external ear and nose normal, oropharynx normal Neck: trachea midline, no thyromegaly Respiratory: normal respiratory effort, lungs clear to auscultation Cardiovascular: RRR, no murmur, no edema Rate/Rhythm: regular rate and regular rhythm Gastrointestinal (Abdomen): Percussion/Palpation: abdomen soft NT, ND umbilical incision scar, no redness, BS + Musculoskeletal: no cyanosis or clubbing, extremities motor strength 5/5 Skin: no rashes, warm and dry Neurologic: patellar DTR's 2+ bilat, sensation intact Psychiatric: A+Ox3, euthymic affect Orientation: alert and oriented x 3 Results & Data Vital Signs (Past 12 Hours) Vital Signs Temp Pulse Resp BP Pulse Ox 07/26/19 15:27 37.0 C 74 18 179/88 H 96 Laboratory Results Abnormal lab results 07/25/19 07/26/19 07/26/19 Range/Units 20:59 05:20 05:20 WBC 4.64 L (4.8-10.8) K/uL RBC 4.26 L (4.7-6.1) M/uL Hgb 13.4 L (14.0-18.0) g/dL Hct 40.7 L 38.6 L (42-52) % Potassium 3.2 L (3.5-5.1) mmol/L Chloride 109 H (98-107) mmol/L BUN 5 L D (7-18) mg/dl BUN/Creatinine Ratio 6.8 L (10-20) Glucose 108 H (70-99) mg/dl Calcium 7.9 L (8.5-10.1) mg/dl Diagnostic Findings XR KUB/Abdomen 1 view CLINICAL HISTORY: eval bowel pattern COMPARISON STUDY: 07/25/2019 FINDINGS: Improved exam. Small bowel distention has improved. Maximum diameter has diminished to 4.2 cm from 4.8 cm. Nasogastric tube remains within the gastric fundus. No evidence for significant colonic distention. IMPRESSION: Mildly improved small bowel distention. Nasogastric tube remains within the gastric fundus.
[2019-07-27] MEDS: HYDROmorphone INJ 0.5 MG/0.5 ML SYR IV PRN ×2 (00:43→09:34)
[2019-07-27] MEDS: D5W AND NSS 1,000 ML IV SCH ×2 (00:43→07:32)
[2019-07-27] MEDS: PANTOprazole 40 MG in DEXTROSE 5% 100 ML IV SCH ×5 (02:10→21:59)
[2019-07-27] MEDS: ACETAMINOPHEN 1,000 MG/100 ML VIAL IV SCH ×2 (02:10→09:34)
--- NOTE | 2019-07-27 10:54 | Surgery Progress Note ---
Date of Service passed gas and 4 time BM, no abdominal pain, NG- 350ml, July 27, 2019 Assessment & Plan (1) Partial small bowel obstruction: partial SBO, doing better, no abdominal pain, passed gas, continue treatment, no surgical indication now, will F/U 07/27/2019 10:55AM doing fine, D/C NG clera diet today, will F/U Supervising Physician Co-Signing Physician Notes I performed a history and physical examination of the patient today, including specifically on physical exam - soft abdomen. I have discussed the patient's management with the advanced practitioner. Please refer to the nurse practitioner's note for the documented findings and plan of care. 59 yrs old male patient admitted with SBO, has NG placed for decompression, GI consulted for coffee ground material in the NG tube. He is passing flatus and has brown colored BM. KUB with dilated loops of small bowel. NG aspirate is now yellow bile colored with no blood or coffee ground material. Recommend: IV PPI BID Management of SBO per surgical team. If evidence of rebleeding or drop in H/H then please recall GI over the weekend for EGD, otherwise if remains stable then OP EGD. Recall GI if needed. Subjective +headache +coffee grouond emesis starting 1000 this am last dose toradol 0700 +BM this afternoon denies abdominal pain no fevers/chills throat sore and irritated from tube. Physical Exam Constitutional: WD/WN, vitals as above well developed and well nourished Eyes: PERRL, conjunctivae normal, anicteric sclerae ENMT: external ear and nose normal, oropharynx normal Neck: trachea midline, no thyromegaly Respiratory: normal respiratory effort, lungs clear to auscultation Cardiovascular: RRR, no murmur, no edema Rate/Rhythm: regular rate and regular rhythm Gastrointestinal (Abdomen): Percussion/Palpation: abdomen soft Musculoskeletal: no cyanosis or clubbing, extremities motor strength 5/5 Skin: no rashes, warm and dry Neurologic: patellar DTR's 2+ bilat, sensation intact Psychiatric: A+Ox3, euthymic affect Orientation: alert and oriented x 3 Results & Data Vital Signs (Past 12 Hours) Vital Signs Temp Pulse Resp BP BP Pulse Ox 07/27/19 07:45 36.4 C L 70 16 162/92 H 163/93 H 96 07/26/19 23:19 36.5 C 69 16 150/82 H 96
[2019-07-27 11:26] LABS: BUN Creatinine Ratio 4.3 (10-20); Calcium 8.4 mg/dl (8.5-10.1); Creatinine Clr Calc Pharmacy 100.9 ml/min; Est GFR (African American) 107.2; Est GFR (Non-African American) 92.5; Magnesium 1.9 mg/dl (1.8-2.4); Potassium 3.9 mmol/L (3.5-5.1)
[2019-07-27] MEDS ORDERED: ACETAMINOPHEN 1,000 MG/100 ML VIAL IV PRN (11:49)
[2019-07-27] MEDS ORDERED: ACETAMINOPHEN 325 MG TAB PO PRN (11:49)
--- NOTE | 2019-07-27 17:53 | Hospitalist Progress Note ---
Date of Service July 27, 2019 Assessment & Plan (1) UGIB (upper gastrointestinal bleed): Coffee ground emesis began with NGT in place and stopped after PPI drip was placed. Cont PPI going home and follow-up with [facility] in 2-4 weeks to consider EGD. No drop in hemoglobin. Hemodynamically stable. (2) Small bowel obstruction: appears resolved, starting clears. (3) Headache: Tylenol PRN (4) DVT prophylaxis: SCDs/ambulation-chemoprophy contraindicated in setting of bleed. Full Code Dispo-cont hospitalization Keiry Bailey DO [facility] Hospitalist Admission and Anticipated Discharge Date Admission Date: July 23, 2019 Anticipated date of discharge: 07/28/19 Subjective Feeling very well as NGT has been discontinued Denies other symptoms at this time +hungry but encouraged to take it slowly-->ordered to have clears. Review of Systems Review of Systems: All systems reviewed & are unremarkable except as noted in Subjective Physical Exam Physical Exam: CONSTITUTIONAL: WNWD, vitals as above, generally well- appearing EYES: normal conjunctivae, no scleral icterus ENT: external ear and nose normal, oropharynx clear RESPIRATORY: clear to auscultation bilaterally, no crackles, rales or wheezes, normal respiratory effort CARDIOVASCULAR: regular rate and rhythm, S1 and 2 heard without murmurs, gallops or rubs, no JVD, no peripheral edema GASTROINTESTINAL: soft, nontender, slight protuberance but soft, no guarding. MUSCULOSKELETAL: strength 5/5 throughout, head is normocephalic and atraumatic SKIN: warm and dry NEUROLOGIC: CN 2-12 grossly intact, no sensory deficit, normal cognition, normal speech, no gross focal deficits. PSYCHIATRIC: alert cooperative and oriented to person, place and time. Results & Data ([facility]) Vital Signs (Past 12 Hours) Vital Signs Temp Pulse Resp BP BP Pulse Ox 07/27/19 15:11 37 C 63 16 161/89 H 94 07/27/19 07:45 36.4 C L 70 16 162/92 H 163/93 H 96 Laboratory Results [facility] 07/27/19 10:43 Sodium 140 Potassium 3.9 D Chloride 109 H Carbon Dioxide 27 BUN 4 L Creatinine 0.90 Glucose 106 H Calcium 8.4 L Medications Administered Current Inpatient Medications Acetaminophen (Tylenol) 650 mg PO Q6H PRN PRN Reason: Pain or Fever Stop: 08/26/19 11:48 Pantoprazole Sodium 40 mg/ (Dextrose) 100 mls @ 20 mls/hr IV Q5H SARAHI Stop: 07/28/19 15:29 Last Admin: 07/27/19 16:46 Dose: 8 mg/hr, 20 mls/hr Documented by: Lidocaine HCl (Viscous Lidocaine 2%) 15 ml MT Q8H PRN PRN Reason: throat pain Stop: 08/23/19 17:16 Last Admin: 07/25/19 17:19 Dose: 15 ml Documented by: Ondansetron HCl (Zofran) 4 mg IV Q6H PRN PRN Reason: Nausea Stop: 08/22/19 23:46 Last Admin: 07/24/19 00:21 Dose: 4 mg Documented by: Phenol (Chloraseptic 1.4% [place]) 2 sprays MT Q2H PRN PRN Reason: Sore Throat Stop: 08/23/19 04:27 Last Admin: 07/25/19 20:40 Dose: 2 sprays Documented by:
[2019-07-28] MEDS: PANTOprazole 40 MG in DEXTROSE 5% 100 ML IV SCH ×3 (03:16→13:15)
[2019-07-28 11:28] LABS: Basophils # (auto) 0.02 K/uL (0-0.2); Basophils % (auto) 0.3 %; Eosinophils # (auto) 0.15 K/uL (0-0.5); Eosinophils % (auto) 2.2 %; Hematocrit (blood only) 40.2 % (42-52); Hemoglobin 14.2 g/dL (14.0-18.0); Immature Granulocytes # (auto) 0.01 K/uL (0.00-0.02); Immature Granulocytes % (auto) 0.1 %; Lymphocytes # (auto) 1.66 K/uL (1.2-3.4); Lymphocytes % (auto) 24.3 %; Mean Corpuscular Hemoglobin 31.5 pg (25-34); Mean Corpuscular Hgb Conc 35.3 g/dL (32-36); Mean Corpuscular Volume 89.1 fL (80-100); Monocytes # (auto) 0.62 K/uL (0.11-0.59); Monocytes % (auto) 9.1 %; Neutrophils # (auto) 4.36 K/uL (1.4-6.5); Platelet Count 220 K/uL (130-400); RDW Coefficient of Variation 12.8 % (11.5-14.5); RDW Standard Deviation 41.6 fL (36.4-46.3); Red Blood Count 4.51 M/uL (4.7-6.1); White Blood Count 6.82 K/uL (4.8-10.8)
--- NOTE | 2019-07-28 11:33 | Surgery Progress Note ---
Date of Service July 28, 2019 Assessment & Plan (1) Partial small bowel obstruction: Resolved +bowel function no abdominal pain Plan: Advance diet to full liquids and then as tolerated encourage ambulation can likely transition to oral PPI continue medical management if tolerates advancement of diet today can be discharged from surgical prospective Dr. Reece has seen and examined pt, agrees with above. Subjective feeling good no abdominal pain multiple loose bowel movements throughout the night ate liquids yesterday, hungry for more no nausea or vomiting ambulating hallway Physical Exam Constitutional: WD/WN, vitals as above no acute distress Respiratory: normal respiratory effort; no respiratory distress Gastrointestinal (Abdomen): Inspection/Auscultation: abdomen normal to inspection; abdomen not distended Percussion/Palpation: abdomen soft; abdomen nontender, no guarding and abdomen not rigid Skin: no rashes, warm and dry Psychiatric: A+Ox3, euthymic affect Results & Data Vital Signs (Past 12 Hours) Vital Signs Temp Pulse Resp BP Pulse Ox 07/28/19 07:32 36.6 C 69 18 148/83 H 94 Laboratory Results 07/28/19 Range/Units 11:15 WBC 6.82 (4.8-10.8) K/uL RBC 4.51 L (4.7-6.1) M/uL Hgb 14.2 (14.0-18.0) g/dL Hct 40.2 L (42-52) % MCV 89.1 (80-100) fL MCH 31.5 (25-34) pg MCHC 35.3 (32-36) g/dL RDW Std Deviation 41.6 (36.4-46.3) fL RDW Coeff of Sharmila 12.8 (11.5-14.5) % Plt Count 220 (130-400) K/uL MPV 10.0 (7.4-10.4) fL Immature Gran % (Auto) 0.1 % Neut % (Auto) 64.0 % Lymph % (Auto) 24.3 % [place] % (Auto) 9.1 % Eos % (Auto) 2.2 % Baso % (Auto) 0.3 % Immature Gran # (Auto) 0.01 (0.00-0.02) K/uL Neut # (Auto) 4.36 (1.4-6.5) K/uL Lymph # (Auto) 1.66 (1.2-3.4) K/uL [place] # (Auto) 0.62 H (0.11-0.59) K/uL Eos # (Auto) 0.15 (0-0.5) K/uL Baso # (Auto) 0.02 (0-0.2) K/uL
--- NOTE | 2019-07-28 12:48 | Hospitalist Progress Note ---
Date of Service July 28, 2019 Assessment & Plan (1) Small bowel obstruction: Admitted with abdominal pain and distention with remote history of umbilical hernia repair SBO is likely secondary to adhesions Treated with NG tube insertion, n.p.o. and IV fluid Appreciate surgery input and recommendation SBO appears resolved, starting clears. We will advance diet and if tolerated will be discharged home this afternoon (2) UGIB (upper gastrointestinal bleed): Coffee ground emesis began with NGT in place and stopped after PPI drip was placed. Likely secondary to minor trauma and/or bilious vomiting Cont PPI going home and follow-up with [facility] in 2-4 weeks to consider EGD. No drop in hemoglobin. (3) Headache: Tylenol PRN (4) DVT prophylaxis: SCDs/ambulation-chemoprophy contraindicated in setting of bleed. Full Code Dispo-cont hospitalization Admission and Anticipated Discharge Date Admission Date: July 23, 2019 Anticipated date of discharge: 07/28/19 Subjective The patient is seen and examined in medical floor 59-year-old male with remote history of umbilical hernia repair was admitted with abdominal pain and distention Noted to have partial small bowel obstruction and NG tube was put in She was noted to have some upper GI bleed likely secondary to trauma and that was cleared He was started with clears orally and diet will be advanced as tolerated He wants to go home this afternoon Review of Systems Review of Systems: System reviewed and are unremarkable except as noted below Gastrointestinal: no abdominal pain, no bloating, no nausea and no vomiting Physical Exam Physical Exam: Sitting on the chair without any acute symptoms Constitutional: well nourished; no acute distress and not ill appearing Eyes: PERRL, conjunctivae normal, anicteric sclerae ENMT: external ear and nose normal, oropharynx normal Neck: trachea midline, no thyromegaly Respiratory: normal respiratory effort; no respiratory distress Auscultation: lungs clear to auscultation bilaterally Cardiovascular: Rate/Rhythm: regular rate and regular rhythm Heart Sounds: no murmur Gastrointestinal (Abdomen): Inspection/Auscultation: abdomen normal to in spection, + abdomen distended (Minimally distended) and normal bowel sounds Percussion/Palpation: abdomen soft; abdomen nontender Musculoskeletal: No acute arthritis in any joints Neurologic: Alert, awake and oriented x3 Results & Data ([facility]) Vital Signs (Past 12 Hours) Vital Signs Temp Pulse Resp BP Pulse Ox 07/28/19 07:32 36.6 C 69 18 148/83 H 94 Laboratory Results Short CBC 07/28/19 Range/Units 11:15 WBC 6.82 (4.8-10.8) K/uL Hgb 14.2 (14.0-18.0) g/dL Hct 40.2 L (42-52) % Plt Count 220 (130-400) K/uL Medications Administered Current Inpatient Medications Acetaminophen (Tylenol) 650 mg PO Q6H PRN PRN Reason: Pain or Fever Stop: 08/26/19 11:48 Pantoprazole Sodium 40 mg/ (Dextrose) 100 mls @ 20 mls/hr IV Q5H SARAHI Stop: 07/28/19 15:29 Last Admin: 07/28/19 08:16 Dose: 8 mg/hr, 20 mls/hr Documented by: Lidocaine HCl (Viscous Lidocaine 2%) 15 ml MT Q8H PRN PRN Reason: throat pain Stop: 08/23/19 17:16 Last Admin: 07/25/19 17:19 Dose: 15 ml Documented by: Ondansetron HCl (Zofran) 4 mg IV Q6H PRN PRN Reason: Nausea Stop: 08/22/19 23:46 Last Admin: 07/24/19 00:21 Dose: 4 mg Documented by: Phenol (Chloraseptic 1.4% [place]) 2 sprays MT Q2H PRN PRN Reason: Sore Throat Stop: 08/23/19 04:27 Last Admin: 07/25/19 20:40 Dose: 2 sprays Documented by:
--- NOTE | 2019-07-29 07:25 | Discharge Summary ---
Date of Service July 29, 2019 Admission HPI Per Admitting Provider DICTATED BY: Vahid Chiu MD DATE OF ADMISSION: 07/24/2019 CHIEF COMPLAINT: Abdominal pain, small-bowel obstruction. HISTORY OF PRESENT ILLNESS: This is a 59-year-old male with past medical history significant for hyperlipidemia, recurrent herpes simplex, not currently on medications, developed severe abdominal pain yesterday. No nausea or vomiting and he went to [facility] in [place], and CAT scan was done and found to have small-bowel obstruction, as they do not have surgical services currently, he was transferred here for further care. The patient has been placed NG tube prior to transfer. The pain is better controlled now. NG tube is draining greenish material. His last bowel movement was yesterday morning with a small bowel movement. Denies any blood in the stools or black stools. No hematuria, no burning micturition. No chest pain, no shortness of breath, no cough, no fever, no chills, no headache, no blurred vision, no dizziness, no earache, no runny nose, no sore throat, no dysphagia. He says he has an umbilical hernia repair and he did not had any other abdominal surgeries. Currently resting comfortably and hemodynamically stable. Admission Exam Per Admitting Provider GENERAL: The patient is moderate built, not in acute distress. VITAL SIGNS: Temperature 36.6, pulse 80, respiratory rate 18, blood pressure 168/99 and oxygen 98% on room air. HEENT: No pallor, no icterus. Pupils equal, round, reactive to light. NECK: No JVD, no neck masses, no carotid bruits. CARDIOVASCULAR: S1, S2 heard, regular rate and rhythm, no murmur, no gallop. RESPIRATORY SYSTEM: Normal AP diameter. No accessory muscle use. No wheezing. No crackles. ABDOMEN: Soft, somewhat distended. Absent bowel sounds. Nontender. No guarding. CENTRAL NERVOUS SYSTEM: Cranial nerves II-XII grossly intact. Nonfocal. EXTREMITIES: No edema, no erythema. Principal Diagnosis Small bowel obstruction -resolved, upper GI bleed following insertion of NG tube-resolved Discharge Exam Constitutional well nourished; no acute distress and not ill appearing Eyes PERRL, conjunctivae normal, anicteric sclerae ENMT external ear and nose normal, oropharynx normal Neck trachea midline, no thyromegaly Respiratory normal respiratory effort; no respiratory distress Auscultation: lungs clear to auscultation bilaterally Cardiovascular Rate/Rhythm: regular rate and regular rhythm Heart Sounds: no murmur Gastrointestinal (Abdomen) Inspection/Auscultation: abdomen normal to inspection, + abdomen distended (Minimally distended) and normal bowel sounds Percussion/Palpation: abdomen soft; abdomen nontender Discharge Data Allergies Allergy/AdvReac Type Severity Reaction Status Date / Time No Known Allergies Allergy Verified 06/26/02 17:59 Consultations 07/23/19 23:47 Consult Case Management - Discharge Planning Routine 07/24/19 08:00 Consult General Surgery Routine 07/25/19 14:57 Consult Gastroenterology Stat Hospital Course (1) Small bowel obstruction: Admitted with abdominal pain and distention with remote history of umbilical hernia repair SBO is likely secondary to adhesions Treated with NG tube insertion, n.p.o. and IV fluid Appreciate surgery input and recommendation SBO appears resolved, starting clears. We will advance diet and if tolerated will be discharged home this afternoon (2) UGIB (upper gastrointestinal bleed): Coffee ground emesis began with NGT in place and stopped after PPI drip was placed. Likely secondary to minor trauma and/or bilious vomiting Cont PPI going home and follow-up with [facility] in 2-4 weeks to consider EGD. No drop in hemoglobin. (3) Headache: Tylenol PRN (4) DVT prophylaxis: SCDs/ambulation-chemoprophy contraindicated in setting of bleed. Full Code Dispo-cont hospitalization Total Time Total Time Spent Total Time Spent (In Minutes): 35 minutes Total Time Includes: Examination of the Patient, Discharge Planning, Medication Reconciliation and Communication With Other Providers Discharge Plan Discharge Items Patient Disposition: Home - Self-Care Reason For Visit: SMALL BOWEL OBSTRUCTION Discharge Diagnosis: Small bowel obstruction -resolved, upper GI bleed following insertion of NG tube-resolved Condition on Discharge: Good Activity: Resume your previous activity Non-emergency contact: Primary Care Provider Call non-emergency contact if: you have any medication questions and your symptoms worsen Follow-up/Referrals: Jair Rapp MD [Primary Care Provider] - 07/31/19 1:00 pm Sarai Meredith MD [Hospitalist] - ([facility] will call you for an appointment) Diet: Regular Addtl Attending Provider Instructions: It is recommended that you undergo an upper endoscopy in 2-4 weeks time after the bleeding episode in the hospital. Please contact someone at [facility] regarding setting up an appointment for this. Please continue taking the Protonix medication until further instruction from your physician. Pending Studies at Discharge: No Stand-Alone Forms: My [facility], Work/School Release (Inpt), Smoking Cessation Medications and DC Order Prescriptions: New pantoprazole [Protonix] 40 mg tablet,delayed release (DR/EC) 40 mg PO DAILY Qty: 30 RF: 1 Discharge Orders: Discharge Order (Routine); Ordered 07/28/19 Ordered By: Dario Castellano Admission Data Admit Date/Time: 07/23/19 23:36 Attending Provider: Dario Castellano Admit Provider: Vahid Chiu Primary Care Provider: Jair Rapp Other Providers: Hany Pacheco ; Jackie Bhatti ; Darrius Crum ; Elsa Jung ; Hill Otero ; Jose Nick ; Emily Whitley ; Floyd Kumar ; Brianna Taylor ; Volodymyr Gayle Jr ; Rowan Reece ; Cherelle Miranda ; Sarai Meredith ; Keiry Bailey Other Interventions: Discharge Summary Assessment (RN) Last Done: 07/28/19 15:17 DC Date/Time DO NOT enter until pt leaves facility: 07/28/19 17:00
== END 2019-07-28 17:00 | disposition home or self-care (01) | DRG 378 ==
LOC: SUATTDRO 23:36 → 3W 23:36

== ENCOUNTER 2021-09-01 17:01 | Observation (INO) ==
[2021-09-01] MEDS ORDERED: SODIUM CHLORIDE 0.9% 1000ML 1,000 ML IV ONE (17:35)
[2021-09-01] MEDS ORDERED: ONDANSETRON INJ 2 MG/ML 2 ML VIAL IV STA (17:35)
--- NOTE | 2021-09-01 17:38 | Emergency Department Note ---
Impression & Plan Partial small bowel obstruction, Abdominal pain ED Provider Note NAME: ROSALIA CARLOS AGE: 61 SEX: M : 1960 ARRIVES VIA: Walk-In INFORMANT: Patient ED PROVIDER(S): Mukesh Goetz DO CHIEF COMPLAINT: abdominal pain HPI: Patient is a 61-year-old male with a past medical history of hernia repair and a small bowel obstruction that presents the ER for lower abdominal pain. This started Sunday. He was having profuse diarrhea. Diarrhea has nearly abated at this point. He notes the pain is worse with up moving around but currently his pain is a 0 out of 10. He described as a crampy pain when he had it. He is lying flat in the bed. He denies any pain at this point. No dysuria urgency or frequency. No other exacerbating or remitting factors. ROS: See above HPI for pertinent positives & negatives. A total of 10 systems reviewed and were otherwise negative. PAST MEDICAL HISTORY:See Below PAST SURGICAL HISTORY:See Below FAMILY HISTORY:See Below SOCIAL HISTORY:See Below HOME MEDICATIONS:See Below ALLERGIES:See Below VITALS:See Below PHYSICAL EXAMINATION: GENERAL: Sitting up in bed, alert, well appearing, well nourished, no distress, non-toxic EYE EXAM: normal conjunctiva. OROPHARYNX: no exudate, no erythema, lips, buccal mucosa, and tongue normal and mucous membranes are moist NECK: supple, no nuchal rigidity, no adenopathy, non-tender LUNGS: Clear to auscultation. Normal chest wall mechanics HEART: no murmurs, S1 normal and S2 normal ABDOMEN: abdomen soft, non-tender, normo-active bowel sounds, no masses, no rebound or guarding. BACK: Back is symmetrical on inspection and there is no deformity, no midline tenderness, no CVA tenderness. SKIN: no rashes and no bruising UPPER EXTREMITIES: upper extremities are grossly normal. LOWER EXTREMITIES: No pitting edema. NEURO EXAM: Normal sensorium, cranial nerves II-XII grossly intact, normal speech, no gross weakness of arms, no gross weakness of legs. MEDICAL DECISION MAKING: Patient is a 61-year-old male who presents ER for above-stated complaint. IV was established blood work was obtained. Labs show no significant leukocytosis or anemia. BMP slightly low CO2 of 20. LFTs bilirubin and lipase is unremarkable. UA was unremarkable. COVID was negative. CT abdomen pelvis shows small bowel obstruction. Patient was given IV fluids. He declined any pain medications. He declined NG tube. He was updated bedside and discussed with Dr. Jacob. Discussed with Chaz Gayle from surgery who was notified in regards to small bowel obstruction as well. Discussed with Pt concerning signs and symptoms to watch out for. Pt was instructed to follow up with their PCP and discussed with the patient their option to return to the ED at anytime for persistent or worsening symptoms. The appropriate anticipatory guidance and out- patient management, including indications for return to the emergency department, were explained at length to the patient and understood. Triage Nursing notes reviewed. Limited review of prior medical records performed Vital Signs: reviewed and remarkable for no significant abnormalities Differential diagnosis: Differential diagnoses includes but is not limited to gastritis, peptic ulcer disease, GERD, gallbladder disease, pancreatitis, small bowel obstruction, acute coronary syndrome, pericarditis, ischemic bowel, irritable bowel disease, irritable bowel syndrome, appendicitis, diverticulitis, malignancy, hernia, urinary tract infection, torsion, perforation, trauma, infectious. ER treatment provided: See below Diagnostics interpreted by me: ECG: none Cardiac Monitoring: An order was placed for continuous cardiac monitoring. The monitor shows a rate of 72 with sinus rhythm. Laboratory studies: As stated above and show below. Imaging studies: CT abdomen pelvis was remarkable for small bowel obstruction Consultation(s): Discussed with hospitalist and general surgery as stated above Procedures: none Critical Care: None Past Med/Surg History Medical History History of hepatitis C non-detectable viral load after tx per patient History of kidney stones Hyperlipidemia per records Sensorineural hearing loss (SNHL) of left ear with restricted hearing of right ear Small bowel obstruction hx Surgical History History of arthroscopy of right knee History of colonoscopy History of open reduction and internal fixation (ORIF) procedure right tib/fib fx repair--hardware in place History of umbilical hernia repair Family History Mother Cancer Lymphoma Other No family history of adverse response to anesthesia No family history of allergies No family history of bleeding disorder Denies family history of Hearing loss Heart disease Hypertension Stroke Asthma Social History Smoking Status: Never smoker Second Hand Exposure: No; Hx Alcohol Use: Yes Alcohol type: beer Alcohol Intake Frequency: 2-4 x/Month Hx Substance Use: No Preferred Language: Hebrew Communication Ability: Effective Negative Cleaner Required: No Beliefs That Will Affect Care: None marital status: Current Living Situation: Significant Other Current Living Situation Comment: Lives with kids current occupational status: employed current occupation: [employer] Feels Safe at Home: Yes Safety Concerns: Feels Safe At This Time Assistive Devices: Glasses and Hearing Aid - Bilateral Allergies Allergies Allergy/AdvReac Type Severity Reaction Status Date / Time No Known Drug Allergies Allergy Unknown Verified 09/01/21 20:26 Home Meds Home Medications Medication Instructions Recorded Confirmed acyclovir 200 mg capsule 200 mg PO TID PRN 11/14/19 09/01/21 multivitamin 1 tab PO QAM 11/14/19 09/01/21 pantoprazole 40 mg tablet,delayed 40 mg PO QAM 01/08/20 09/01/21 release (Protonix) nebivolol 5 mg tablet (Bystolic) 5 mg PO QAM 12/15/20 09/01/21 ginkgo biloba 40 mg tablet 40 mg PO QAM 09/01/21 09/01/21 magnesium oxide 84.5 mg PO QAM 09/01/21 09/01/21 Results & Data (ED) Vital Signs Vital Signs - 24 hr 09/01/21 17:08 09/01/21 17:40 09/01/21 17:53 Temperature 36.1 C L Temperature Source Temporal Artery Scan Pulse Rate 88 75 Pulse Rate [Right Finger] Pulse Rate from SpO2 Sensor Respiratory Rate 16 21 Blood Pressure 135/86 Blood Pressure [Right Arm] Blood Pressure Mean 102 Blood Pressure Mean [Right Arm] Blood Pressure Position [Right Arm] Pulse Oximetry 97 97 Oxygen Delivery Method Room Air Room Air Sepsis Recent Fever Within 48 Hours No Sepsis New/Unexplained Change in Mental Status N/A Sepsis Action Taken by Nursing No Action Required 09/01/21 18:00 09/01/21 18:01 09/01/21 19:21 Temperature Temperature Source Pulse Rate 73 74 Pulse Rate [Right Finger] 73 Pulse Rate from SpO2 Sensor Respiratory Rate 17 21 16 Blood Pressure 107/77 Blood Pressure [Right Arm] 163/88 H Blood Pressure Mean 87 Blood Pressure Mean [Right Arm] 113 Blood Pressure Position [Right Arm] Lying Pulse Oximetry 97 Oxygen Delivery Method Room Air Sepsis Recent Fever Within 48 Hours Sepsis New/Unexplained Change in Mental Status Sepsis Action Taken by Nursing 09/01/21 19:30 09/01/21 19:31 Temperature Temperature Source Pulse Rate Pulse Rate [Right Finger] Pulse Rate from SpO2 Sensor 69 73 Respiratory Rate Blood Pressure 137/80 Blood Pressure [Right Arm] Blood Pressure Mean 99 Blood Pressure Mean [Right Arm] Blood Pressure Position [Right Arm] Pulse Oximetry 97 97 Oxygen Delivery Method Room Air Sepsis Recent Fever Within 48 Hours Sepsis New/Unexplained Change in Mental Status Sepsis Action Taken by Nursing Laboratory Data Result diagrams: 09/01/21 17:31 09/01/21 17:31 Lab Results 09/01/21 09/01/21 09/01/21 Range/Units 17:31 17:31 17:31 WBC 7.21 (4.8-10.8) K/uL RBC 5.10 (4.7-6.1) M/uL Hgb 16.1 (14.0-18.0) g/dL Hct 46.6 (42-52) % MCV 91.4 (80-100) fL MCH 31.6 (25-34) pg MCHC 34.5 (32-36) g/dL RDW Std Deviation 44.9 (36.4-46.3) fL RDW Coeff of Sharmila 13.4 (11.5-14.5) % Plt Count 227 (130-400) K/uL MPV 10.6 H (7.4-10.4) fL Immature Gran % (Auto) 0.1 % Neut % (Auto) 73.7 % Lymph % (Auto) 12.5 % Lanier % (Auto) 12.6 % Eos % (Auto) 0.8 % Baso % (Auto) 0.3 % Neut # (Auto) 5.31 (1.4-6.5) K/uL Lymph # (Auto) 0.90 L (1.2-3.4) K/uL Lanier # (Auto) 0.91 H (0.11-0.59) K/uL Eos # (Auto) 0.06 (0-0.5) K/uL Baso # (Auto) 0.02 (0-0.2) K/uL Immature Gran # (Auto) 0.01 (0.00-0.02) K/uL Sodium 135 L (136-145) mmol/L Potassium 4.4 (3.5-5.1) mmol/L Chloride 105 (98-107) mmol/L Carbon Dioxide 20 L (21-32) mmol/L Anion Gap 10 (3-11) BUN 27 H (6-23) mg/dl Creatinine 1.34 (0.6-1.4) mg/dl Est Cr Clr Drug Dosing 65.9 ml/min Est GFR ( Amer) 65.3 ml/min Est GFR (Non-Af Amer) 56.4 ml/min BUN/Creatinine Ratio 20.1 H (10-20) Glucose 95 (70-99(Fasting)) mg/dl Calcium 9.3 (8.5-10.1) mg/dl Magnesium 2.1 (1.7-2.4) mg/dl Total Bilirubin 0.9 (0.2-1.0) mg/dl AST 26 (13-39) U/L ALT 28 (7-52) U/L Alkaline Phosphatase 68 (34-104) U/L Total Protein 8.0 (6.0-8.3) gm/dl Albumin 4.7 (3.4-5.0) gm/dl Globulin 3.3 (2.5-4.0) gm/dl Albumin/Globulin Ratio 1.4 (0.9-2) Lipase 20 (11-82) U/L Urine Color Urine Appearance (Clear) Urine pH (4.5-7.5) Ur Specific Sentinel (1.000-1.030) Urine Protein (Negative) Urine Glucose (UA) (Negative) Urine Ketones (Negative) Urine Blood (Negative) Urine Nitrite (Negative) Urine Bilirubin (Negative) Urine Urobilinogen (Negative) Ur Leukocyte Esterase (Negative) Urine WBC (Auto) (0-5) /hpf Urine RBC (Auto) (0-4) /hpf U Hyaline Cast (Auto) (0-5) /lpf U Epithel Cells (Auto) (0-5) /lpf Urine Bacteria (Auto) (Negative) SARS-CoV-2, RNA, NAAT (NEGATIVE) 09/01/21 09/01/21 Range/Units 17:35 19:24 WBC (4.8-10.8) K/uL RBC (4.7-6.1) M/uL Hgb (14.0-18.0) g/dL Hct (42-52) % MCV (80-100) fL MCH (25-34) pg MCHC (32-36) g/dL RDW Std Deviation (36.4-46.3) fL RDW Coeff of Sharmila (11.5-14.5) % Plt Count (130-400) K/uL MPV (7.4-10.4) fL Immature Gran % (Auto) % Neut % (Auto) % Lymph % (Auto) % Lanier % (Auto) % Eos % (Auto) % Baso % (Auto) % Neut # (Auto) (1.4-6.5) K/uL Lymph # (Auto) (1.2-3.4) K/uL Lanier # (Auto) (0.11-0.59) K/uL Eos # (Auto) (0-0.5) K/uL Baso # (Auto) (0-0.2) K/uL Immature Gran # (Auto) (0.00-0.02) K/uL Sodium (136-145) mmol/L Potassium (3.5-5.1) mmol/L Chloride (98-107) mmol/L Carbon Dioxide (21-32) mmol/L Anion Gap (3-11) BUN (6-23) mg/dl Creatinine (0.6-1.4) mg/dl Est Cr Clr Drug Dosing ml/min Est GFR ( Amer) ml/min Est GFR (Non-Af Amer) ml/min BUN/Creatinine Ratio (10-20) Glucose (70-99(Fasting)) mg/dl Calcium (8.5-10.1) mg/dl Magnesium (1.7-2.4) mg/dl Total Bilirubin (0.2-1.0) mg/dl AST (13-39) U/L ALT (7-52) U/L Alkaline Phosphatase (34-104) U/L Total Protein (6.0-8.3) gm/dl Albumin (3.4-5.0) gm/dl Globulin (2.5-4.0) gm/dl Albumin/Globulin Ratio (0.9-2) Lipase (11-82) U/L Urine Color Dark Yellow Urine Appearance Clear (Clear) Urine pH 5.0 (4.5-7.5) Ur Specific Sentinel 1.032 H (1.000-1.030) Urine Protein 2+ H (Negative) Urine Glucose (UA) Negative (Negative) Urine Ketones 1+ H (Negative) Urine Blood Negative (Negative) Urine Nitrite Negative (Negative) Urine Bilirubin 1+ H (Negative) Urine Urobilinogen Negative (Negative) Ur Leukocyte Esterase Negative (Negative) Urine WBC (Auto) 1-5 (0-5) /hpf Urine RBC (Auto) 0-4 (0-4) /hpf U Hyaline Cast (Auto) 1-5 (0-5) /lpf U Epithel Cells (Auto) 10-20 H (0-5) /lpf Urine Bacteria (Auto) Negative (Negative) SARS-CoV-2, RNA, NAAT NEGATIVE (NEGATIVE) Administered Medications Lactated Ringer's (Lr) 1,000 mls @ 200 mls/hr IV .Q5H ONE Stop: 09/02/21 00:21 Last Admin: 09/01/21 19:36 Dose: 200 mls/hr Documented by: [id number] Metoprolol Tartrate (Metoprolol Tartrate 25 Mg Tab) 12.5 mg PO BID SARAHI Stop: 10/01/21 20:09 Last Admin: 09/01/21 21:00 Dose: 12.5 mg Documented by: [id number] Discontinued Medications Sodium Chloride (Nss 1000ml) 1,000 mls @ 999 mls/hr IV .Q1H1M ONE Stop: 09/01/21 18:35 Last Infusion: 09/01/21 19:33 Dose: 0 mls/hr Documented by: [id number] Admin: 09/01/21 17:47 Dose: 999 mls/hr Documented by: [id number] Ioversol (Optiray 320 100ml) 94 ml IV ONCE ONE Stop: 09/01/21 18:36 Last Admin: 09/01/21 18:38 Dose: 94 ml Documented by: [id number] Metoprolol Tartrate (Metoprolol Tartrate 1 Mg/Ml Vial) 2.5 mg IV NOW STA; Protocol Stop: 09/01/21 19:35 Last Admin: 09/01/21 20:01 Dose: Not Given Documented by: [id number] Ondansetron HCl (Ondansetron Inj 2 Mg/Ml 2 Ml Vial) 4 mg IV NOW STA Stop: 09/01/21 17:36 Last Admin: 09/01/21 17:42 Dose: 4 mg Documented by: [id number] Imaging Data Radiologist's Impression: Abdomen/Pelvis CT 09/01/21 17:[address] WITH IV CONTRAST CT DOSE: 812.66 mGy.cm HISTORY: lower abd pain feels like previous SBO TECHNIQUE: Multiaxial CT images of the abdomen and pelvis were performed following the use of intravenous contrast. A dose lowering technique was utilized adhering to the principles of ALARA. COMPARISON STUDY: Outside hospital abdomen and pelvis CT 07/23/2019. FINDINGS: Mild dependent changes seen within the lung bases. No pneumope ritoneum. No pneumatosis. No fractures within the visualized osseous structures. The liver, gallbladder, pancreas, spleen, adrenal glands, and right kidney are unremarkable. There is a punctate stone within the left kidney. No ureteral stones. No hydronephrosis. The bladder is unremarkable. Stable 8 mm anterior diaphragmatic lymph node on image 64. There are few prominent periportal lymph nodes. Dominant lymph node measures 2.1 x 1.1 cm. Mild calcified plaque within the normal caliber abdominal aorta. Scattered mesenteric lymph nodes have slightly increased in size. Dominant mesenteric lymph node measures 12 mm. The bladder is unremarkable. Small fat-containing bilateral hernias. Colonic div erticulosis. No evidence for acute diverticulitis. Normal appendix. The distal ileal loops within the right lower quadrant are decompressed. The small bowel loops proximal to the distal ileum are distended and fluid-filled measuring up to 4 cm in diameter. This is similar to the prior study and is consistent with a small bowel obstruction. Transition point is likely located within the distal ileal loops within the right lower quadrant. IMPRESSION: 1. Dilated and fluid-filled mid to distal small bowel loops with decompressed distal ileal loops consistent with a small bowel obstruction. This is similar to the prior study. 2. A few prominent periportal and mesenteric lymph nodes which have slightly increased in size in the interval. This could be reactive. However, consider 6 month abdomen and pelvis CT follow-up to exclude the less likely possibility of a lymphoproliferative disorder. 3. Left-sided nephrolithiasis. No hydronephrosis. 4. Colonic diverticulosis. No evidence for acute diverticulitis. 5. Normal appendix. ACT 112: Negative or not required by law. Electronically signed by: Asim Murcia M.D. 09/01/2021 7:06 PM Discharge Plan Visit Data Chief Complaint: Abdominal Pain Stated Complaint: ABD PAIN, DIARRHEA ED Provider: Mukesh Gotez Discharge Problem: Partial small bowel obstruction, Abdominal pain Patient Disposition: Admitted As Inpatient Discharge Instructions Interventions: ED Discharge Assessment Last Done: 09/01/21 20:15
[2021-09-01 17:49] LABS: Basophils # (auto) 0.02 K/uL (0-0.2); Basophils % (auto) 0.3 %; Eosinophils # (auto) 0.06 K/uL (0-0.5); Eosinophils % (auto) 0.8 %; Hematocrit (blood only) 46.6 % (42-52); Hemoglobin 16.1 g/dL (14.0-18.0); Immature Granulocytes # (auto) 0.01 K/uL (0.00-0.02); Immature Granulocytes % (auto) 0.1 %; Lymphocytes % (auto) 12.5 %; Mean Corpuscular Hemoglobin 31.6 pg (25-34); Mean Corpuscular Hgb Conc 34.5 g/dL (32-36); Mean Corpuscular Volume 91.4 fL (80-100); Mean Platelet Volume 10.6 fL (7.4-10.4); Monocytes # (auto) 0.91 K/uL (0.11-0.59); Monocytes % (auto) 12.6 %; Neutrophils # (auto) 5.31 K/uL (1.4-6.5); Neutrophils % (auto) 73.7 %; Platelet Count 227 K/uL (130-400); RDW Coefficient of Variation 13.4 % (11.5-14.5); RDW Standard Deviation 44.9 fL (36.4-46.3); White Blood Count 7.21 K/uL (4.8-10.8)
[2021-09-01 18:15] LABS: Appearance Urine Clear (Clear); Bacteria Urine Automated Negative (Negative); Blood Urine Negative (Negative); Color Urine Dark Yellow; Glucose Urine UA Negative (Negative); Ketones Urine 1+ (Negative); Leukocyte Esterase Urine Negative (Negative); Nitrite Urine Negative (Negative); Protein Urine 2+ (Negative); RBC Urine Automated 0-4 /hpf (0-4); Specific Gravity Urine 1.032 (1.000-1.030); Urobilinogen Urine Negative (Negative)
[2021-09-01 18:18] LABS: Albumin Globulin Ratio 1.4 (0.9-2); Albumin Level 4.7 gm/dl (3.4-5.0); BUN Creatinine Ratio 20.1 (10-20); Bilirubin,Total 0.9 mg/dl (0.2-1.0); Calcium 9.3 mg/dl (8.5-10.1); Creatinine Clr Calc Pharmacy 65.9 ml/min; Est GFR (African American) 65.3 ml/min; Est GFR (Non-African American) 56.4 ml/min; Globulin 3.3 gm/dl (2.5-4.0); Potassium 4.4 mmol/L (3.5-5.1)
[2021-09-01 18:19] LABS: Bilirubin Urine 1+ (Negative)
[2021-09-01] MEDS ORDERED: OPTIRAY 320 100ml IV ONE (18:35)
--- NOTE | 2021-09-01 19:08 | CT Scan Report ---
ABDOMEN AND PELVIS CT WITH IV CONTRAST CT DOSE: 812.66 mGy.cm HISTORY: lower abd pain feels like previous SBO TECHNIQUE: Multiaxial CT images of the abdomen and pelvis were performed following the use of intrave nous contrast. A dose lowering technique was utilized adhering to the principles of ALARA. COMPARISON STUDY: Outside hospital abdomen and pelvis CT 07/23/2019. FINDINGS: Mild dependent changes seen within the lung bases. No pneumoperitoneum. No pneumatosis. No fractures within the visualized osseous structures. The liver, gallbladder, pancreas, spleen, adrenal glands, and right kidney are unremarkable. There is a punctate stone within the left kidney. No uret eral stones. No hydronephrosis. The bladder is unremarkable. Stable 8 mm anterior diaphragmatic lymph node on image 64. There are few prominent periportal lymph nodes. Dominant lymph node measures 2.1 x 1.1 cm. Mild calcified plaque within the normal caliber abdominal aorta. Scattered mesenteric lymph nodes have slightly increased in size. Dominant mesenteric lymph node measures 12 mm. The bladder is unremarkable. Small fat-containing bilateral hernias. Colonic diverticulosis. No evidence for acute d iverticulitis. Normal appendix. The distal ileal loops within the right lower quadrant are decompress ed. The small bowel loops proximal to the distal ileum are distended and fluid-filled measuring up to 4 cm in diameter. This is similar to the prior study and is consistent with a small bowel obstructio n. Transition point is likely located within the distal ileal loops within the right lower quadrant. IMPRESSION: 1. Dilated and fluid-filled mid to distal small bowel loops with decompressed distal ileal loops cons istent with a small bowel obstruction. This is similar to the prior study. 2. A few prominent periportal and mesenteric lymph nodes which have slightly increased in size in the interval. This could be reactive. However, consider 6 month abdomen and pelvis CT follow-up to exclu de the less likely possibility of a lymphoproliferative disorder. 3. Left-sided nephrolithiasis. No hydronephrosis. 4. Colonic diverticulosis. No evidence for acute diverticulitis. 5. Normal appendix. ACT 112: Negative or not required by law. Electronically signed by: Asim Murcia M.D. 09/01/2021 7:06 PM
[2021-09-01] MEDS ORDERED: LACTATED RINGER'S 1,000 ML IV ONE (19:22)
[2021-09-01] MEDS ORDERED: METOPROLOL TARTRATE 1 MG/ML VIAL IV STA (19:34)
--- NOTE | 2021-09-01 19:34 | History & Physical Report ---
Date of Service September 01, 2021 Assessment & Plan Plan: Recurrent SBO History hernia surgery hypertension, elevated secondary to discomfort Lymphadenopathy on CT imaging HCV status post treatment urolithiasis Medical telemetry given uncontrolled BP Analgesia, facilitate home BP meds may need dose titration Bowel rest NGT insertion if with worsening abdominal discomfort/emesis General Surgery consultation in a.m. Re: Recurrent SBO Outpatient follow-up CT imaging of the abdomen pelvis for lymphadenopathy after 6 months as per report recommendation DVT prophylaxis per Lovenox subcu Full code Text document was generated using [employer] voice recognition software. It may contain grammatical or spelling errors. Kindly contact undersigned for clarification of any documentation item in question. History of Present Illness Chief Complaint: Abdominal pain Primary Care Provider: Jair Rapp MD History obtained from patient and records. Medical history significant for hypertension, HCV status post treatment, urolithiasis. Last confinement July 2019 for SBO resolved with conservative management. UGI B post NGT placement. 3 days ago, patient noted intermittent achy abdominal pain complaints associated with self-limiting diarrhea. Some nausea, no emesis. No fever, no chills. Abdominal pain somewhat reminiscent of bowel obstruction episode from 2 years ago. Thinks he may have lost weight the last week from symptoms. Fever chills last night. No chest pain, no SOB. SBP 160s at one point during ER stay. Medical History as above Surgical History : Liver biopsy, foot surgery, knee surgery, umbilical hernia repair Family History : Lymphoma Personal/Social history : Non-smoker, occasional EtOH intake, utility maintenance worker Allergies Allergy/AdvReac Type Severity Reaction Status Date / Time No Known Drug Allergies Allergy Unknown Verified 09/01/21 20:26 Home Medications Medication Instructions Recorded Confirmed Type acyclovir 200 mg capsule 200 mg PO TID PRN 11/14/19 09/01/21 History multivitamin 1 tab PO QAM 11/14/19 09/01/21 History pantoprazole 40 mg tablet,delayed 40 mg PO QAM 01/08/20 09/01/21 History release (Protonix) nebivolol 5 mg tablet (Bystolic) 5 mg PO QAM 12/15/20 09/01/21 History ginkgo biloba 40 mg tablet 40 mg PO QAM 09/01/21 09/01/21 History magnesium oxide 84.5 mg PO QAM 09/01/21 09/01/21 History Past Med/Surg History Medical History (Updated 12/15/20 @ 17:29 by Gabby Calvin) History of hepatitis C non-detectable viral load after tx per patient History of kidney stones Hyperlipidemia per records Sensorineural hearing loss (SNHL) of left ear with restricted hearing of right ear Small bowel obstruction hx Surgical History History of arthroscopy of right knee History of colonoscopy History of open reduction and internal fixation (ORIF) procedure right tib/fib fx repair--hardware in place History of umbilical hernia repair Family History (Updated 12/15/20 @ 13:27 by Simona Cotto) Mother Cancer Lymphoma Other No family history of adverse response to anesthesia No family history of allergies No family history of bleeding disorder Denies family history of Hearing loss Heart disease Hypertension Stroke Asthma Social History (Updated 12/15/20 @ 13:26 by Simona Cotto) Smoking Status: Never smoker Second Hand Exposure: No; Hx Alcohol Use: Yes Alcohol type: beer Alcohol Intake Frequency: 2-4 x/Month Hx Substance Use: No Preferred Language: Martiniquais Communication Ability: Effective Dual Rate Supervisor Required: No Beliefs That Will Affect Care: None marital status: Current Living Situation: Family Current Living Situation Comment: Lives with kids current occupational status: employed current occupation: [employer] Feels Safe at Home: Yes Assistive Devices: None Review of Systems Review of Systems: As per HPI, all other systems reviewed and negative Physical Exam Physical Exam: GENERAL: Comfortable, slightly anxious, pleasant, no respiratory distress SKIN: Normal color, warm HEENT: [place] palpebral conjunctivae, no ptosis, dry buccal mucosa NECK : Supple, no tenderness CHEST : CTA, no tenderness HEART : RRR, no obvious murmurs ABDOMEN: Some distention, central abdominal tenderness EXTREMITIES : No LE swelling/tenderness, no other conspicuous deformities noted NEUROLOGIC : Coherent, no facial asymmetry, no other gross focality Results & Data Results & Data ([facility]) Vital Signs (Past 12 Hours) Vital Signs Temp Pulse Pulse Resp BP BP Pulse Ox 09/01/21 19:21 73 16 163/88 H 97 09/01/21 18:01 74 21 107/77 09/01/21 18:00 73 17 09/01/21 17:53 75 21 09/01/21 17:40 97 09/01/21 17:08 36.1 C L 88 16 135/86 97 Laboratory Results Laboratory Results WBC 7.21 K/uL (4.8-10.8) 09/01/21 17: RBC 5.10 M/uL (4.7-6.1) 09/01/21 17: Hgb 16.1 g/dL (14.0-18.0) 09/01/21: Hct 46.6 % (42-52) 09/01/21: MCV 91.4 fL (80-100) 09/01/21 17: MCH 31.6 pg (25-34) 09/01/21: MCHC 34.5 g/dL (32-36) 09/01/21: RDW Std Deviation 44.9 fL (36.4-46.3) 09/01/21: RDW Coeff of Sharmila 13.4 % (11.5-14.5) 09/01/21: Plt Count 227 K/uL (130-400) 09/01/21: MPV 10.6 fL (7.4-10.4) H 09/01/21: Immature Gran % (Auto) 0.1 % 09/01/21: Neut % (Auto) 73.7 % 09/01/21: Lymph % (Auto) 12.5 % 09/01/21 17: [place] % (Auto) 12.6 % 09/01/21: Eos % (Auto) 0.8 % 09/01/21: Baso % (Auto) 0.3 % 09/01/21: Neut # (Auto) 5.31 K/uL (1.4-6.5) 09/01/21 17: Lymph # (Auto) 0.90 K/uL (1.2-3.4) L 09/01/21: [place] # (Auto) 0.91 K/uL (0.11-0.59) H 09/01/21 17: Eos # (Auto) 0.06 K/uL (0-0.5) 09/01/21: Baso # (Auto) 0.02 K/uL (0-0.2) 09/01/21 17:31 Immature Gran # (Auto) 0.01 K/uL (0.00-0.02) 09/01/21 17:31 Sodium 135 mmol/L (136-145) L 09/01/21 17:31 Potassium 4.4 mmol/L (3.5-5.1) 09/01/21 17:31 Chloride 105 mmol/L (98-107) 09/01/21 17:31 Carbon Dioxide 20 mmol/L (21-32) L 09/01/21 17:31 Anion Gap 10 (3-11) 09/01/21 17:31 BUN 27 mg/dl (6-23) H 09/01/21 17:31 Creatinine 1.34 mg/dl (0.6-1.4) 09/01/21 17:31 Est Cr Clr Drug Dosing 65.9 ml/min 09/01/21 17:31 Est GFR ( Amer) 65.3 ml/min 09/01/21 17:31 Est GFR (Non-Af Amer) 56.4 ml/min 09/01/21 17:31 BUN/Creatinine Ratio 20.1 (10-20) H 09/01/21 17:31 Glucose 95 mg/dl (70-99(Fasting)) 09/01/21 17:31 Calcium 9.3 mg/dl (8.5-10.1) 09/01/21 17:31 Total Bilirubin 0.9 mg/dl (0.2-1.0) 09/01/21 17:31 AST 26 U/L (13-39) 09/01/21 17:31 ALT 28 U/L (7-52) 09/01/21 17:31 Alkaline Phosphatase 68 U/L (34-104) 09/01/21 17:31 Total Protein 8.0 gm/dl (6.0-8.3) 09/01/21 17:31 Albumin 4.7 gm/dl (3.4-5.0) 09/01/21 17:31 Globulin 3.3 gm/dl (2.5-4.0) 09/01/21 17:31 Albumin/Globulin Ratio 1.4 (0.9-2) 09/01/21 17:31 Lipase 20 U/L (11-82) 09/01/21 17:31 Urine Color Dark Yellow 09/01/21 17:35 Urine Appearance Clear (Clear) 09/01/21 17:35 Urine pH 5.0 (4.5-7.5) 09/01/21 17:35 Ur Specific [place] 1.032 (1.000-1.030) H 09/01/21 17:35 Urine Protein 2+ (Negative) H 09/01/21 17:35 Urine Glucose (UA) Negative (Negative) 09/01/21 17:35 Urine Ketones 1+ (Negative) H 09/01/21 17:35 Urine Blood Negative (Negative) 09/01/21 17:35 Urine Nitrite Negative (Negative) 09/01/21 17:35 Urine Bilirubin 1+ (Negative) H 09/01/21 17:35 Urine Urobilinogen Negative (Negative) 09/01/21 17:35 Ur Leukocyte Esterase Negative (Negative) 09/01/21 17:35 Urine WBC (Auto) 1-5 /hpf (0-5) 09/01/21 17:35 Urine RBC (Auto) 0-4 /hpf (0-4) 09/01/21 17:35 U Hyaline Cast (Auto) 1-5 /lpf (0-5) 09/01/21 17:35 U Epithel Cells (Auto) 10-20 /lpf (0-5) H 09/01/21 17:35 Urine Bacteria (Auto) Negative (Negative) 09/01/21 17:35 Impressions Abdomen/Pelvis CT 09/01/21 17:[address] WITH IV CONTRAST CT DOSE: 812.66 mGy.cm HISTORY: lower abd pain feels like previous SBO TECHNIQUE: Multiaxial CT images of the abdomen and pelvis were performed following the use of intravenous contrast. A dose lowering technique was utilized adhering to the principles of ALARA. COMPARISON STUDY: Outside hospital abdomen and pelvis CT 07/23/2019. FINDINGS: Mild dependent changes seen within the lung bases. No pneumoperitoneum. No pneumatosis. No fractures within the visualized osseous structures. The liver, gallbladder, pancreas, spleen, adrenal glands, and right kidney are unremarkable. There is a punctate stone within the left kidney. No ureteral stones. No hydronephrosis. The bladder is unremarkable. Stable 8 mm anterior diaphragmatic lymph node on image 64. There are few prominent periportal lymph nodes. Dominant lymph node measures 2.1 x 1.1 cm. Mild calcified plaque within the normal caliber abdominal aorta. Scattered mesenteric lymph nodes have slightly increased in size. Dominant mesenteric lymph node measures 12 mm. The bladder is unremarkable. Small fat-containing bilateral hernias. Colonic diverticulosis. No evidence for acute diverticulitis. Normal appendix. The distal ileal loops within the right lower quadrant are decompressed. The small bowel loops proximal to the distal ileum are distended and fluid-filled measuring up to 4 cm in diameter. This is similar to the prior study and is consistent with a small bowel obstruction. Transition point is likely located within the distal ileal loops within the right lower quadrant. IMPRESSION: 1. Dilated and fluid-filled mid to distal small bowel loops with decompressed distal ileal loops consistent with a small bowel obstruction. This is similar to the prior study. 2. A few prominent periportal and mesenteric lymph nodes which have slightly increased in size in the interval. This could be reactive. However, consider 6 month abdomen and pelvis CT follow-up to exclude the less likely possibility of a lymphoproliferative disorder. 3. Left-sided nephrolithiasis. No hydronephrosis. 4. Colonic diverticulosis. No evidence for acute diverticulitis. 5. Normal appendix. ACT 112: Negative or not required by law. Electronically signed by: Asim Murcia M.D. 09/01/2021 7:06 PM
[2021-09-01] MEDS ORDERED: LORazepam 2 MG/1 ML VIAL IV PRN (20:37)
[2021-09-01] MEDS ORDERED: ACETAMINOPHEN 325 MG TAB PO PRN (20:37)
[2021-09-01] MEDS ORDERED: PROMETHAZINE HCL 12.5 MG in SODIUM CHLORIDE 0.9% 50 ML IV PRN (20:37)
--- NOTE | 2021-09-01 20:39 | Surgery Consultation ---
Date of Consultation September 01, 2021 Assessment & Plan (1) Small bowel obstruction: Patient has been admitted on the medical service. We recommend proceeding as follows: Implement n.p.o. status Hydrate with IV fluids As the patient has not had any nausea or vomiting and the fact that he is passing flatus I feel we can hold off on placing an NG tube at this time. It is noteworthy mention that the patient has adamantly refused this modality anyway. Provide antiemetics if needed Provide as needed analgesics I discussed with the patient that we will keep him n.p.o. until he has improved physical exam findings and improvement of his bowel function. Once this happens we can consider advancing his diet beginning with clear liquids. Additional recommendations be forthcoming based on his clinical course as it unfolds Supervising Physician Co-Signing Physician Notes Imaging and labs reviewed, discussed with MONROE Gil. Partial sbo, plan for nonoperative management. Surgery to follow. History of Present Illness Reason for Consultation: Small bowel obstruction Attending Physician: Tatum Renae MD History of Present Illness This is a 61-year-old male who presented to [facility] emergency department secondary to abdominal pain. Patient notes that he was in his usual state of health feeling fine yesterday but earlier today the patient developed a cramp-like abdominal pain and also had several loose bowel movements. He denies any nausea or vomiting. He also denies any fevers, shakes, chills. Patient reports a history of an umbilical herniorrhaphy approximately 2 years ago and he noted approximately 1 year after his hernia repair he developed a small bowel obstruction. He notes that the small bowel obstruction was treated successfully in a conservative manner but his symptoms today were similar to what he experienced at that time prompting his visit to the emergency department. He denies any other abdominal surgeries. He does note that since arrival to the emergency department he has been passing flatus. Today in the emergency department patient had labs and imaging which I independently reviewed. A CT scan of the abdomen and pelvis showed patient had a dilated and fluid-filled mid to distal small bowel loops with decompressed distal ileal loops that were consistent with a small bowel obstruction. Labs included a CBC were white blood cell count, hemoglobin, hematocrit, and platelet count were all noted to be normal. Chemistry profile showed sodium was 135. His potassium and creatinine were both noted to be normal. He had a slight elevation of his BUN at 27. There is no significant elevation of his LFTs or lipase. Urinalysis was not indicative of infection. A COVID test was noted be negative. At the time of my interview he was resting comfortably in bed and he was in no distress Allergies Allergy/AdvReac Type Severity Reaction Status Date / Time No Known Drug Allergies Allergy Unknown Verified 09/01/21 20:26 Home Medications Medication Instructions Recorded Confirmed Type acyclovir 200 mg capsule 200 mg PO TID PRN 11/14/19 09/01/21 History multivitamin 1 tab PO QAM 11/14/19 09/01/21 History pantoprazole 40 mg tablet,delayed 40 mg PO QAM 01/08/20 09/01/21 History release (Protonix) nebivolol 5 mg tablet (Bystolic) 5 mg PO QAM 12/15/20 09/01/21 History ginkgo biloba 40 mg tablet 40 mg PO QAM 09/01/21 09/01/21 History magnesium oxide 84.5 mg PO QAM 09/01/21 09/01/21 History Patient History Medical History History of hepatitis C non-detectable viral load after tx per patient History of kidney stones Hyperlipidemia per records Sensorineural hearing loss (SNHL) of left ear with restricted hearing of right ear Small bowel obstruction hx Surgical History History of arthroscopy of right knee History of colonoscopy History of open reduction and internal fixation (ORIF) procedure right tib/fib fx repair--hardware in place History of umbilical hernia repair Family History Mother Cancer Lymphoma Other No family history of adverse response to anesthesia No family history of allergies No family history of bleeding disorder Denies family history of Hearing loss Heart disease Hypertension Stroke Asthma Social History Smoking Status: Never smoker Second Hand Exposure: No; Hx Alcohol Use: Yes Alcohol type: beer Alcohol Intake Frequency: 2-4 x/Month Hx Substance Use: No Preferred Language: Italian Communication Ability: Effective Tooth Cutter Required: No Beliefs That Will Affect Care: None marital status: Current Living Situation: Significant Other Current Living Situation Comment: Lives with kids current occupational status: employed current occupation: [employer] Feels Safe at Home: Yes Safety Concerns: Feels Safe At This Time Assistive Devices: Glasses and Hearing Aid - Bilateral Review of Systems Constitutional: no fever and no chills Eyes: no diplopia Ear, Nose, Mouth, Throat: no ear pain Respiratory: no cough and no dyspnea Cardiovascular: no chest pain Gastrointestinal: + abdominal pain and + diarrhea/loose stools; no nausea and no vomiting Genitourinary: no dysuria Musculoskeletal: no back pain Integumentary: no rash Neurologic: no generalized weakness Physical Exam Constitutional: WD/WN, vitals as above Eyes: no conjunctival abnormality ENMT: Ears: no external ear abnormality Mouth: no oropharynx abnormality Neck: trachea midline Respiratory: normal respiratory effort; no respiratory distress and no labored breathing Cardiovascular: Rate/Rhythm: regular rate and regular rhythm Gastrointestinal (Abdomen): Patient's abdomen is mildly distended and somewhat tympanic to percussion. There is no rebound tenderness or guarding. I did not appreciate any hernias. There is minimal pain with palpation. Musculoskeletal: No calf tenderness Skin: no rashes Neurologic: moves all extremities Psychiatric: A+Ox3, euthymic affect Results & Data ([facility]) Vital Signs (Past 12 Hours) Vital Signs Temp Pulse Pulse Resp BP BP Pulse Ox 09/01/21 20:00 73 23 144/97 H 97 09/01/21 19:31 97 09/01/21 19:30 137/80 97 09/01/21 19:21 73 16 163/88 H 97 09/01/21 18:01 74 21 107/77 09/01/21 18:00 73 17 09/01/21 17:53 75 21 09/01/21 17:40 97 09/01/21 17:08 36.1 C L 88 16 135/86 97 PG Care Time/CCT Total # of Minutes Spent Total Time Spent with Patient: Total time spent is greater than 50% in coordination of care (as documented) at patient's floor/unit and/or counseling patient: Coding Level of Care Code 97194 Inpt Consult Level 5 Diagnoses Small bowel obstruction K56.609
[2021-09-01] MEDS ORDERED: METOPROLOL TARTRATE 25 MG TAB PO SCH (21:00)
[2021-09-01] MEDS: METOPROLOL TARTRATE 25 MG TAB PO SCH (21:00)
[2021-09-02] MEDS: LACTATED RINGER'S 1,000 ML IV SCH ×3 (00:38→15:37)
[2021-09-02] MEDS: ENOXAPARIN INJ 40 MG/0.4 ML SYR SQ SCH (07:42)
[2021-09-02] MEDS: PANTOprazole 40 MG TAB PO SCH (07:43)
[2021-09-02 07:59] LABS: Basophils # (auto) 0.01 K/uL (0-0.2); Basophils % (auto) 0.2 %; Hematocrit (blood only) 42.9 % (42-52); Immature Granulocytes # (auto) 0.01 K/uL (0.00-0.02); Immature Granulocytes % (auto) 0.2 %; Lymphocytes # (auto) 1.13 K/uL (1.2-3.4); Lymphocytes % (auto) 22.6 %; Mean Corpuscular Hemoglobin 31.4 pg (25-34); Mean Corpuscular Volume 89.9 fL (80-100); Mean Platelet Volume 10.4 fL (7.4-10.4); Monocytes # (auto) 0.49 K/uL (0.11-0.59); Monocytes % (auto) 9.8 %; Neutrophils # (auto) 3.25 K/uL (1.4-6.5); Neutrophils % (auto) 65.2 %; Platelet Count 207 K/uL (130-400); RDW Coefficient of Variation 13.2 % (11.5-14.5); RDW Standard Deviation 43.3 fL (36.4-46.3); Red Blood Count 4.77 M/uL (4.7-6.1); White Blood Count 4.99 K/uL (4.8-10.8)
[2021-09-02 09:13] LABS: BUN Creatinine Ratio 19.2 (10-20); Calcium 8.7 mg/dl (8.5-10.1); Creatinine Clr Calc Pharmacy 88.7 ml/min; Est GFR (African American) 94.2 ml/min; Est GFR (Non-African American) 81.3 ml/min; Potassium 4.1 mmol/L (3.5-5.1)
[2021-09-02] MEDS: MULTIVITAMIN TAB PO SCH (09:50)
[2021-09-02] MEDS: METOPROLOL TARTRATE 25 MG TAB PO SCH ×2 (09:50→20:34)
--- NOTE | 2021-09-02 11:35 | XRay Report ---
KUB HISTORY: Acute generalized abdominal pain f/u SBP COMPARISON: CT abdomen and pelvis 09/01/2021 FINDINGS: Persistent small bowel obstruction with dilated small bowel loops measuring up to approxima tely 4.57 mm. Air is also noted within the large bowel. Left-sided nephrolithiasis is better seen on the comparison CT study. No pneumoperitoneum or pneumatosis. No fracture. IMPRESSION: Persistent small bowel obstruction. Follow-up recommended. ACT 112: Negative or not required by law. The above report was generated using voice recognition software. It may contain grammatical, syntax o r spelling errors. Electronically signed by: Yung Childers M.D. 09/02/2021 11:33 AM
--- NOTE | 2021-09-02 11:43 | Surgery Progress Note ---
Date of Service September 02, 2021 Assessment & Plan (1) Small bowel obstruction: Plan: Patient here with concern for SBO, h/o umbilical hernia repair 2 years ago Pt feeling improvement in symptoms, but still with some lower belly discomfort Has been advanced to clears, no N/V. He reports passing small amounts of flatus and having some loose BMs On exam patient's abdomen is mildly distended with discomfort to palpation in the lower belly KUB today revealed distended loops of small bowel up to 4.5mm and did note some gas in the colon Continue on liquid diet for today, may advance further pending ongoing improvement in symptoms & ongoing bowel fxn [facility] surgery covering the weekend Admission and Anticipated Discharge Date Admission Date: September 01, 2021 Supervising Physician Co-Signing Physician Notes Patient seen and examined, labs and imaging reviewed, agree with above. 61-year-old male admitted with partial small bowel obstruction. He had a bowel movement and is passing flatus. He is tolerating clear liquids so far. KUB with still distended loops of bowel but air in the colon. He states he feels much better. Slowly advance diet as tolerated, hopefully advance to low fiber and discharge tomorrow. Dr. Gonsalez covering over the weekend. Subjective Patient says he is feeling better. Still has some lower abdominal discomfort but is improved. Reports passing small amounts of flatus and has started passing loose stool. He was advanced to clears and is tolerating some water so far without n/v. Physical Exam Physical Exam: awake/alert Gastrointestinal (Abdomen): Percussion/Palpation: + abdomen tender (discomfort to palpation in the lower abdomen) and abdomen soft Results & Data ([facility]) Vital Signs (Past 12 Hours) Vital Signs Temp Pulse Pulse Resp BP Pulse Ox 09/02/21 07:49 36.3 C L 73 16 117/81 96 09/02/21 07:11 60 09/02/21 04:58 36.5 C 64 18 124/80 96 PG Care Time/CCT Total # of Minutes Spent Total Time Spent with Patient: Total time spent is greater than 50% in coordination of care (as documented) at patient's floor/unit and/or counseling patient: Coding Level of Care Code 83526 Subseq Hosp Care Lvl 1 Diagnoses Small bowel obstruction K56.609
--- NOTE | 2021-09-02 16:46 | Hospitalist Progress Note ---
Date of Service September 02, 2021 Assessment & Plan (1) Small bowel obstruction: Plan: Present on admission with Abdominal pain associated with nausea CT abd/pelvis showed Dilated and fluid-filled mid to distal small bowel loops with decompressed distal ileal loops consistent with a small bowel obstruction. KUB showed Persistent small bowel obstruction. Surgery on board Continue conservative management Patient said that he had a bowel movement last night and few other episodes last night He said that abdominal pain improves significantly Will start on clear liquid diet clinically improves DVT px on Lovenox subq CODE status Full code Admission and Anticipated Discharge Date Admission Date: September 01, 2021 Subjective Pt was seen and examined for follow up of abdominal pain Lying in bed with no acute distress Pt said that he is not having any abdominal pain He said that he had a BM last night and multiple watery bowel movement this morning Denies any chest pain, palpitation, dizziness and SOB Review of Systems Review of Systems: All systems reviewed & are unremarkable except as noted in Subjective Physical Exam Physical Exam: General- No acute distress Head- atraumatic Eyes- PERRL, EOMI, ENT- oropharynx clear Neck- supple, no JVD Lungs- clear to auscultation Heart- regular rhythm; no murmur Abdomen- normal bowel sounds, soft, nontender Extremities- no calf tenderness Neuro- alert, oriented x 3; PERRL, EOMI; no facial palsy; no dysarthria Skin- warm & dry Results & Data Results & Data ([facility]) Vital Signs (Past 12 Hours) Vital Signs Temp Pulse Pulse Resp BP BP Pulse Ox 09/02/21 15:07 36.5 C 78 16 109/69 97 09/02/21 15:00 63 09/02/21 11:44 36.6 C 58 L 18 114/76 98 09/02/21 07:49 36.3 C L 73 16 117/81 96 09/02/21 07:11 60 09/02/21 04:58 36.5 C 64 18 124/80 96
[2021-09-03] MEDS: LACTATED RINGER'S 1,000 ML IV SCH (04:34)
[2021-09-03 06:12] LABS: BUN Creatinine Ratio 12.8 (10-20); Calcium 8.3 mg/dl (8.5-10.1); Creatinine Clr Calc Pharmacy 101.9 ml/min; Est GFR (African American) 107.7 ml/min; Est GFR (Non-African American) 92.9 ml/min; Magnesium 1.9 mg/dl (1.7-2.4); Phosphorus 2.6 mg/dl (2.5-4.9); Potassium 3.5 mmol/L (3.5-5.1)
[2021-09-03] MEDS ORDERED: POTASSIUM CHLORIDE CRTAB 20 MEQ TABCR PO STA (07:48)
[2021-09-03] MEDS: METOPROLOL TARTRATE 25 MG TAB PO SCH ×2 (08:41→09:39)
[2021-09-03] MEDS: PANTOprazole 40 MG TAB PO SCH (08:41)
[2021-09-03] MEDS: MULTIVITAMIN TAB PO SCH ×2 (08:41→09:39)
[2021-09-03] MEDS: ENOXAPARIN INJ 40 MG/0.4 ML SYR SQ SCH (09:37)
--- NOTE | 2021-09-03 09:43 | Surgery Progress Note ---
Date of Service September 03, 2021 Assessment & Plan (1) Small bowel obstruction: Plan: Patient here with concern for SBO, h/o umbilical hernia repair 2 years ago Pt feeling markedly improved. Multiple bowel movements overnight. No more pain. We will advance his diet to low fiber. Possible home later today. Admission and Anticipated Discharge Date Admission Date: September 01, 2021 Subjective Doing well. Denies pain or tenderness. Anxious to advance his diet. No fevers or chills. Physical Exam Physical Exam: awake/alert Constitutional: WD/WN, vitals as above Eyes: no conjunctival abnormality ENMT: Ears: no external ear abnormality Mouth: no oropharynx abnormality Neck: trachea midline Gastrointestinal (Abdomen): Percussion/Palpation: abdomen soft; abdomen nontender Skin: no rashes Neurologic: moves all extremities Psychiatric: A+Ox3, euthymic affect Results & Data ([facility]) Vital Signs (Past 12 Hours) Vital Signs Temp Pulse Pulse Resp BP BP Pulse Ox 09/03/21 07:48 36.5 C 60 58 L 18 107/68 96 09/03/21 04:00 36.3 C L 57 L 18 132/79 97 09/03/21 00:10 80 09/02/21 23:00 36.4 C L 58 L 18 118/72 96 Laboratory Results 09/03/21 Range/Units 05:16 Sodium 139 (136-145) mmol/L Potassium 3.5 (3.5-5.1) mmol/L Chloride 110 H (98-107) mmol/L Carbon Dioxide 24 (21-32) mmol/L Anion Gap 5 (3-11) BUN 11 (6-23) mg/dl Creatinine 0.86 (0.6-1.4) mg/dl Est Cr Clr Drug Dosing 101.9 ml/min Est GFR ( Amer) 107.7 ml/min Est GFR (Non-Af Amer) 92.9 ml/min BUN/Creatinine Ratio 12.8 (10-20) Glucose 93 (70-99(Fasting)) mg/dl Calcium 8.3 L (8.5-10.1) mg/dl Phosphorus 2.6 (2.5-4.9) mg/dl Magnesium 1.9 (1.7-2.4) mg/dl
--- NOTE | 2021-09-03 15:37 | Discharge Summary ---
Date of Service September 03, 2021 Admission HPI Per Admitting Provider History obtained from patient and records. Medical history significant for hypertension, HCV status post treatment, urolithiasis. Last confinement July 2019 for SBO resolved with conservative management. UGI B post NGT placement. 3 days ago, patient noted intermittent achy abdominal pain complaints associated with self-limiting diarrhea. Some nausea, no emesis. No fever, no chills. Abdominal pain somewhat reminiscent of bowel obstruction episode from 2 years ago. Thinks he may have lost weight the last week from symptoms. Fever chills last night. No chest pain, no SOB. SBP 160s at one point during ER stay. Medical History as above Surgical History : Liver biopsy, foot surgery, knee surgery, umbilical hernia repair Family History : Lymphoma Personal/Social history : Non-smoker, occasional Et[employer] intake, factory maintenance manager Admission Exam Per Admitting Provider GENERAL: Comfortable, slightly anxious, pleasant, no respiratory distress SKIN: Normal color, warm HEENT: [place] palpebral conjunctivae, no ptosis, dry buccal mucosa NECK : Supple, no tenderness CHEST : CTA, no tenderness HEART : RRR, no obvious murmurs ABDOMEN: Some distention, central abdominal tenderness EXTREMITIES : No LE swelling/tenderness, no other conspicuous deformities noted NEUROLOGIC : Coherent, no facial asymmetry, no other gross focality Principal Diagnosis Small Bowel Obstruction Discharge Exam General- No acute distress Head- atraumatic Eyes- PERRL, EOMI, ENT- oropharynx clear Neck- supple, no JVD Lungs- clear to auscultation Heart- regular rhythm; no murmur Abdomen- normal bowel sounds, soft, nontender Extremities- no calf tenderness Neuro- alert, oriented x 3; PERRL, EOMI; no facial palsy; no dysarthria Skin- warm & dry Discharge Data Allergies Allergy/AdvReac Type Severity Reaction Status Date / Time No Known Drug Allergies Allergy Unknown Verified 09/01/21 20:26 Consultations 09/01/21 19:15 ED Decision to Admit Stat 09/02/21 08:00 Consult General Surgery Routine Ordered Studies 09/01/21 17:34 CT abd pelvis IV con only Stat KUB HISTORY: Acute generalized abdominal pain f/u SBP COMPARISON: CT abdomen and pelvis 09/01/2021 FINDINGS: Persistent small bowel obstruction with dilated small bowel loops measuring up to approximately 4.57 mm. Air is also noted within the large bowel. Left-sided nephrolithiasis is better seen on the comparison CT study. No pneumoperitoneum or pneumatosis. No fracture. IMPRESSION: Persistent small bowel obstruction. Follow-up recommended. ACT 112: Negative or not required by law. The above report was generated using voice recognition software. It may contain grammatical, syntax or spelling errors. Electronically signed by: Yung Childers M.D. 09/02/2021 11:33 AM Dictated:09/02/21 113 Transcribed: 09/02/[address] WITH IV CONTRAST CT DOSE: 812.66 mGy.cm HISTORY: lower abd pain feels like previous SBO TECHNIQUE: Multiaxial CT images of the abdomen and pelvis were performed following the use of intravenous contrast. A dose lowering technique was utilized adhering to the principles of ALARA. COMPARISON STUDY: Outside hospital abdomen and pelvis CT 07/23/2019. FINDINGS: Mild dependent changes seen within the lung bases. No pneumoperitoneum. No pneumatosis. No fractures within the visualized osseous structures. The liver, gallbladder, pancreas, spleen, adrenal glands, and right kidney are unremarkable. There is a punctate stone within the left kidney. No ureteral stones. No hydronephrosis. The bladder is unremarkable. Stable 8 mm anterior diaphragmatic lymph node on image 64. There are few prominent periportal lymph nodes. Dominant lymph node measures 2.1 x 1.1 cm. Mild calcified plaque within the normal caliber abdominal aorta. Scattered mesenteric lymph nodes have slightly increased in size. Dominant mesenteric lymph node measures 12 mm. The bladder is unremarkable. Small fat-containing bilateral hernias. Colonic diverticulosis. No evidence for acute diverticulitis. Normal appendix. The distal ileal loops within the right lower quadrant are decompressed. The small bowel loops proximal to the distal ileum are distended and fluid-filled measuring up to 4 cm in diameter. This is similar to the prior study and is consistent with a small bowel obstruction. Transition point is likely located within the distal ileal loops within the right lower quadrant. IMPRESSION: 1. Dilated and fluid-filled mid to distal small bowel loops with decompressed distal ileal loops consistent with a small bowel obstruction. This is similar to the prior study. 2. A few prominent periportal and mesenteric lymph nodes which have slightly increased in size in the interval. This could be reactive. However, consider 6 month abdomen and pelvis CT follow-up to exclude the less likely possibility of a lymphoproliferative disorder. 3. Left-sided nephrolithiasis. No hydronephrosis. 4. Colonic diverticulosis. No evidence for acute diverticulitis. 5. Normal appendix. ACT 112: Negative or not required by law. Electronically signed by: Asim Murcia M.D. 09/01/2021 7:06 PM Dictated:09/01/211846 Transcribed: 09/01/211846 Hospital Course (1) Small bowel obstruction: Present on admission with Abdominal pain associated with nausea CT abd/pelvis showed Dilated and fluid-filled mid to distal small bowel loops with decompressed distal ileal loops consistent with a small bowel obstruction. KUB showed Persistent small bowel obstruction. Surgery on board recommended conservative management Pt has been having bowel movement Tolerated full liquid diet Abdominal pain resolved clinically improves DVT px on Lovenox subq CODE status Full code Total Time Total Time Spent Total Time Spent (In Minutes): 35 minutes Discharge Plan Discharge Items Patient Disposition: Home - Self-Care Reason For Visit: HTN URG, SBO Discharge Diagnosis: Small bowel obstruction Activity: Resume your previous activity Non-emergency contact: Primary Care Provider Call non-emergency contact if: you have any medication questions and your symptoms worsen Follow-up/Referrals: Jair Rapp MD [Primary Care Provider] - Diet: Low Fiber Addtl Attending Provider Instructions: Follow up with your primary care provider within 1 week Continue low fiber diet as tolerated Seek medical attention if your symptoms reoccur Pending Studies at Discharge: No Stand-Alone Forms: My [employer] Safety Services, Smoking Cessation Medications and DC Order Prescriptions: Continued Bystolic 5 mg tablet 5 mg PO QAM RF: 0 multivitamin Tablet 1 tab PO QAM RF: 0 acyclovir 200 mg Capsule 200 mg PO TID PRN (Reason: Cold Sores) RF: 0 pantoprazole [Protonix] 40 mg tablet,delayed release (DR/EC) 40 mg PO QAM RF: 0 magnesium oxide 84.5 mg mag (140 mg) Capsule 84.5 mg PO QAM RF: 0 ginkgo biloba [Ginkoba] 40 mg Tablet 40 mg PO QAM RF: 0 Discharge Orders: Discharge Order (Routine); Ordered 09/03/21 Ordered By: Tatum Renae Admission Data Admit Date/Time: 09/01/21 19:37 Attending Provider: Tatum Renae Admit Provider: Tatum Renae Primary Care Provider: Jair Rapp Other Providers: J Luis Jones ; Jensen Gonsalez ; Hany Pacheco ; Jackie Naranjo ; Elsa Jung ; Hill Otero ; Jose Nick ; Emily Whitley ; Brianna Taylor ; Volodymyr Gayle Jr ; Rowan Reece ; Alexandru Justice ; Cherelle Miranda
== END 2021-09-03 15:57 | disposition home or self-care (01) | DRG 390 ==
LOC: ED 17:01 → INTOOBSV 19:37 → 2N 19:37